=== PATIENT | female | born 1935 | race Caucasian/White ===

== ENCOUNTER 2024-07-13 22:56 | Emergency (ER) | payer MEDICARE, OTHER, SELFPAY ==
[2024-07-13 23:00] VITALS: BP 174/76
[2024-07-14 00:56] VITALS: BP 164/74
[2024-07-14 01:03] VITALS: BMI 25.4
[2024-07-14 01:15] LABS: % Basophils 0.5 % (0-2); % Eosinophils 0.4 % (0-6); % Immature Granulocytes 0.8 % (0-0.5); % Monocytes 7.7 % (1.7-9.3); % Neutrophils 72.6 % (42.2-75.2); Absolute Basophils 0.1 10^3/uL (0-0.2); Absolute Immature Granulocytes 0.1 10^3/uL (0-0.05); Absolute Lymphocytes 1.9 10^3/uL (1.2-3.4); Absolute Monocytes 0.8 10^3/uL (0.1-0.6); Absolute Neutrophils 7.6 10^3/uL (1.4-6.5); Hematocrit 38.6 % (37.0-47.0); Hemoglobin 13.7 g/dL (12.0-16.0); Mean Corp Hgb Conc. 35.5 g/dL (33.0-37.0); Mean Corpuscular Volume 84.5 fL (81.0-99.0); Mean Platelet Volume 10.2 fL (7.4-10.4); Nucleated Red Blood Cells % 0 %; Platelet Count 189 10^3/uL (130-400); Red Blood Cell Count 4.57 10^6/uL (4.20-5.40); Red Cell Dist. Width 12.6 % (11.5-14.5); White Blood Cell Count 10.4 10^3/uL (4.8-10.8)
[2024-07-14 01:16] LABS: Urine Albumin Negative (Neg - Trace); Urine Bilirubin Negative (Negative); Urine Character Clear (Clear); Urine Color Yellow; Urine Glucose 1+ (Negative); Urine Ketone Trace (Negative); Urine Leukocyte Negative (Negative); Urine Nitrite Negative (Negative); Urine Occult Blood Negative (Negative); Urine Urobilinogen Negative (Neg - 1+)
[2024-07-14 01:28] LABS: ALT (SGPT) 26 U/L (0-35); AST (SGOT) 38 U/L (14-36); Albumin 4.7 g/dl (3.5-5.0); Alkaline Phosphatase 64 U/L (38-126); Blood Urea Nitrogen 18 mg/dl (7-17); Carbon Dioxide 27 mmol/L (22-30); Chloride 89 mmol/L (98-107); Estimated Creatinine Clearance 65 ml/min; Glucose 157 mg/dl (70-99); Potassium 3.8 mmol/L (3.5-5.1); Sodium 131 mmol/L (135-145); Total Bilirubin 1.1 mg/dl (0.2-1.3); Total Protein 7.1 g/dl (6.3-8.2); eGFR > 60.00
--- NOTE | 2024-07-14 01:39 | ED.GENMED ---
History of Present Illness
General
Chief Complaint: Abdominal Pain
Source: patient
Exam Limitations: none
Time Seen by Provider: 07/14/24 01:24
Nursing documentation reviewed up to this point in time: agreed with
History of Present Illness
History of Present Illness:
This is an 88-year-old woman who has history of postpolio paresis bilateral lower extremities, wheelchair-bound. She complains of at least 5-day history of right groin pain rating to her right low back. Was initially evaluated by PCP last
Saturday, 1 day before and was placed on a 5-day course of prednisone for presumed musculoskeletal pain. She reports no improvement in pain but does admit that low back pain, right groin pain are much worse with movement, worse with
repositioning, worse with transferring, and improves when she is lying supine or Semi-Saldivar's. Pain is worse when she is sitting up. She also notes some constipation over the past week, thus far only minimally improved with taking daily Metamucil
as well as Colace over the past 5 days. She has been passing small firm to soft stools. She denies dysuria and urgency and or hematuria, no fevers or chills, no nausea nor vomiting. No prior history of similar episodes of pain and no prior
history of constipation. She has not noticed a rash. She denies fall or injury.
Past History
Past History
ED Past Medical History: HTN, Hypercholesterolemia, NIDDM (Diet controlled), Hypothyroidism and Other (polio, paresis bilateral lower extremity/wheelchair-bound, macular degeneration); Negative Asthma
ED Past Surgical History: Cholecystectomy, Gynecological (Hysterectommy), Orthopedic (3 carpal tunnels, ) and Tonsilectomy
Social History
Tobacco: Non-smoker
Alcohol: Occasional
Personal:
Living: assisted living (Cassie's choice)
Employment: Retired
Family History
Family History: Other (Noncontributory)
Phy Exam
Physical Exam
Physical Exam:
GENERAL: 88-year-old woman appears her stated age, awake and alert, pleasant, appears in no acute distress.
EYE: anicteric
NECK: Supple, nontender, no meningismus, no significant adenopathy.
ENT: oral mucosa is moist. No rhinorrhea.
CARDIAC: Regular rate and rhythm. no murmur.
LUNGS: Clear breath sounds bilaterally, no acute respiratory distress, no wheezes/rales/rhonchi
ABDOMEN: Soft, nondistended, without focal tenderness, no r/g, no cvat. No palpable masses. Normoactive BS.
BACK: No midline bony tenderness. Mild right lower lumbar paravertebral muscular tenderness to palpation. There is no bony pelvic nor inguinal tenderness to palpation. No palpable masses.
NEUROLOGICAL: Alert and oriented x3, bilateral lower extremity paresis, chronic and unchanged.
SKIN: Warm and dry, normal color, skin intact. No rash.
MUSCULOSKELETAL: Mild nonpitting edema bilateral lower extremities. Peripheral pulses are full and equal b/l. No palpable tenderness. There is full passive right hip and right knee range of motion without difficulty nor pain.
PSYCH: Normal and appropriate interaction.
Course
Orders/Labs/Results
Orders:
Orders
07/14/24 00:53
Complete Blood Count/With Diff Urgent
Comprehensive Metabolic Panel Urgent
Urinalysis Reflex To Culture Urgent
Date Specimen was Collected: 07/14/24
Time Specimen was Collected: 00:48
07/14/24 01:38
CT Abd/pel Without Iv Or Oral Urgent
Comment:
Reason For Exam: RLQ pain rad to R back x 5 days
07/14/24 04:37
Ketorolac [Toradol] 30 mg .ROUTE .STK-MED ONE
07/14/24 05:21
Ketorolac [Toradol] 30 mg IV NOW STA
Abnormal Lab Results
07/14/24
00:53
Abs Immat Gran (auto) 0.1 H 10^3/uL
(0-0.05)
Absolute Neuts (auto) 7.6 H 10^3/uL
(1.4-6.5)
Absolute Monos (auto) 0.8 H 10^3/uL
(0.1-0.6)
Immature Gran % 0.8 H %
(0-0.5)
Lymphocytes % 18.0 L %
(20.5-51.1)
Sodium 131 L mmol/L
(135-145)
Chloride 89 L mmol/L
(98-107)
BUN 18 H mg/dl
(7-17)
Creatinine 0.3 L mg/dL
(0.6-1.0)
Glucose 157 H mg/dl
(70-99)
AST 38 H U/L
(14-36)
Urine Ketones Trace A
(Negative)
Urine Glucose 1+ A
(Negative)
07/14/24 00:53
07/14/24 00:53
Vital Signs
Initial and Last Documented VS:
Initial Vital Signs
Temp Pulse Resp BP Pulse Ox
97.1 F 68 22 174/76 100
07/13/24 23:00 07/13/24 23:00 07/13/24 23:00 07/13/24 23:00 07/13/24 23:00
Last Documented Vital Signs
Temp Pulse Resp BP Pulse Ox
97.1 F 61 16 182/78 98
07/13/24 23:00 07/14/24 03:10 07/14/24 03:10 07/14/24 03:10 07/14/24 03:10
MDM/Problems Addressed
Differential Diagnosis Includes:
Concern for musculoskeletal low back pain, groin pain. Right hip exam is benign, not consistent with primary hip pain.
Other consideration is constipation, UTI, ureteric stone. Abdominal exam is overall soft and benign, appendicitis, diverticulitis are unlikely.
Labs thus far unremarkable with normal white blood cell count, unremarkable chemistries. Urinalysis is unremarkable as well.
Will check CT abdomen pelvis.
Chronic conditions affecting care: Previous abdomnial surgery and Other (Postpolio paresis lower extremities)
*Radiology
Radiology exam reviewed: radiology read reviewed
*Pulse Oximetry
Patient hypoxic: no
*Critical Care Note
Total Time (30-74mins, 75-104mins- exclusive of procedures): Not Applicable
Update Note
Update Note:
Patient feeling markedly improved after an IV dose of Toradol. Resting comfortably.
CAT scan shows no evidence of obstructing renal stone. There is note of some constipation without bowel obstruction or diverticulitis. Minimal bladder wall thickening. Urinalysis however is unremarkable, no evidence of UTI.
I suspect right groin pain is musculoskeletal in nature.
Will trial once daily meloxicam. Recommend she continue with Tylenol and gabapentin.
Recommend she continue Metamucil as well as Senokot on a daily basis for constipation. Stay well-hydrated on a daily basis as well.
Prompt follow-up with PCP for recheck.
ED Attending Note
-
Portions of this chart may have been created with voice recognition software.� Occasional wrong word or��sound alike� substitutions may have occurred due to the inherent limitations of voice recognition software.
Discharge Plan
Departure
Patient Disposition: Home (Routine Discharge)
Date of Disposition: 07/14/24
Time of Disposition: 06:18
Patient with high blood pressure during this ER visit?: No
Condition: Good
Discharge Problem:
Right groin pain, Constipation
Instructions: Low Back Pain ED, Constipation, Adult ED
Prescriptions:
New
meloxicam 15 mg tablet
15 mg PO DAILY Qty: 30 0RF
No Action
simvastatin 20 mg Tablet
20 mg PO QMWFSU
latanoprost 0.005 % Drops
1 drp OPHTHALMIC (EYE) QPM
enalapril maleate 5 mg Tablet
5 mg PO DAILY
methylprednisolone [Methylprednisone] 4 mg Tablet
4 mg PO DAILY
Rx Instructions:
start date 04/23/23
atenolol 25 mg Tablet
25 mg PO QPM
calcium carbonate-vitamin D3 [Calcium 600 + D(3)] 600 mg-5 mcg (200 unit) Tablet
2 tab PO DAILY AT 0700
aspirin [Adult Aspirin EC Low Strength] 81 mg Tablet,Delayed Release (Dr/Ec)
81 mg PO DAILY
acetaminophen 500 mg Tablet
1,000 mg PO BID
levothyroxine 50 mcg Tablet
50 mcg PO DAILY
gabapentin 300 mg Capsule
300 mg PO BID
hydrochlorothiazide 25 mg Tablet
25 mg PO DAILY
cholecalciferol (vitamin D3) 10 mcg (400 unit) Tablet,Chewable
10 mcg PO DAILY
omega 1-krz-hnz-fish oil [Fish Oil] 1,200 (144-216) mg Capsule
2 cap PO DAILY
PreserVision AREDS-2 250-90-40-1 mg Capsule
1 tab PO BID
Referrals:
UNKNOWN - PT DOES,NOT KNOW [Family Provider] -
Activity Restrictions/Additional Instructions:
Follow-up with your family doctor this week or next week for recheck.
Interventions
Interventions:
*Risk Screen - Suicide Last Done: 07/13/24 23:02
*General Assessment Last Done: 07/14/24 00:56
*Neglect/Abuse Screening Last Done: 07/13/24 23:02
ED- Fall Risk Assessment Last Done: 07/14/24 00:56
*ED COVID-19 Vaccine History Last Done: 07/14/24 00:56
LN-Sguntt-Igmurhetdq Assessment Last Done: 07/14/24 00:56
Discharge Date and Time
Print Language: LAO
[2024-07-14 03:10] VITALS: BP 182/78
[2024-07-14] MEDS: TORADOL 30 MG IV (05:22)
--- NOTE | 2024-07-14 10:55 | EDRN ---
Reviewed discharge instructions with patient. Verbalized understanding. Report given to [facility].
[2024-07-14 10:59] VITALS: BP 170/77
== END 2024-07-14 11:00 | disposition home or self-care (01) ==
LOC: EMR 22:56
PROVIDERS: Internal Medicine; EMERGENCY PHYSICIAN Emergency Medicine
DX: R10.31 Right lower quadrant pain (principal); K59.00 Constipation, unspecified; M54.50 Low back pain, unspecified; R60.0 Localized edema; I10 Essential (primary) hypertension; E11.9 Type 2 diabetes mellitus without complications; E78.00 Pure hypercholesterolemia, unspecified; E03.9 Hypothyroidism, unspecified; M81.0 Age-related osteoporosis without current pathological fracture; I34.0 Nonrheumatic mitral (valve) insufficiency; G82.20 Paraplegia, unspecified; Z99.3 Dependence on wheelchair; H35.30 Unspecified macular degeneration; Z90.49 Acquired absence of other specified parts of digestive tract; Z86.12 Personal history of poliomyelitis; Z79.82 Long term (current) use of aspirin; Z88.8 Allergy status to other drugs, medicaments and biological substances; Z88.1 Allergy status to other antibiotic agents; Z88.5 Allergy status to narcotic agent; Z88.0 Allergy status to penicillin; Z91.013 Allergy to seafood
CPT/HCPCS: 99284; 96374; 74176; 80053; 81003; 85025

== ENCOUNTER 2024-11-07 21:25 | Emergency (ER) | payer MEDICARE, OTHER, SELFPAY ==
[2024-11-07 21:33] VITALS: BP 170/80; BMI 25.1
[2024-11-07 21:52] LABS: % Basophils 0.3 % (0-2); % Eosinophils 0.5 % (0-6); % Immature Granulocytes 0.4 % (0-0.5); % Monocytes 6.5 % (1.7-9.3); % Neutrophils 84.3 % (42.2-75.2); Absolute Eosinophils 0.1 10^3/uL (0-0.7); Absolute Immature Granulocytes 0.1 10^3/uL (0-0.05); Absolute Lymphocytes 1.2 10^3/uL (1.2-3.4); Absolute Neutrophils 12.9 10^3/uL (1.4-6.5); Hematocrit 37.2 % (37.0-47.0); Hemoglobin 13.3 g/dL (12.0-16.0); Mean Corp Hgb Conc. 35.8 g/dL (33.0-37.0); Mean Corpuscular Hgb 30.4 pg (27.0-31.0); Mean Corpuscular Volume 84.9 fL (81.0-99.0); Mean Platelet Volume 10.6 fL (7.4-10.4); Nucleated Red Blood Cells % 0 %; Platelet Count 182 10^3/uL (130-400); Red Blood Cell Count 4.38 10^6/uL (4.20-5.40); Red Cell Dist. Width 12.3 % (11.5-14.5); White Blood Cell Count 15.3 10^3/uL (4.8-10.8)
[2024-11-07 22:14] LABS: ALT (SGPT) 23 U/L (0-35); AST (SGOT) 42 U/L (14-36); Albumin 4.7 g/dl (3.5-5.0); Alkaline Phosphatase 66 U/L (38-126); Blood Urea Nitrogen 28 mg/dl (7-17); Calcium 9.5 mg/dl (8.4-10.2); Carbon Dioxide 28 mmol/L (22-30); Chloride 98 mmol/L (98-107); Estimated Creatinine Clearance 64 ml/min; Glucose 221 mg/dl (70-99); Potassium 3.4 mmol/L (3.5-5.1); Sodium 135 mmol/L (135-145); Total Protein 6.9 g/dl (6.3-8.2); eGFR > 60.00
[2024-11-07 23:10] LABS: Urine Albumin 3+ (Neg - Trace); Urine Bilirubin Negative (Negative); Urine Character Cloudy (Clear); Urine Color Brown; Urine Glucose 2+ (Negative); Urine Ketone 1+ (Negative); Urine Leukocyte 3+ (Negative); Urine Nitrite Positive (Negative); Urine Occult Blood 4+ (Negative); Urine Specific Gravity 1.015 (<1.030); Urine Urobilinogen Negative (Neg - 1+)
[2024-11-07 23:17] LABS: Urine Bacteria Few (Negative); Urine Squamous Cell 0-2 /LPF (Few); Urine White Cell 50-60 /HPF (0-5)
[2024-11-07 23:18] LABS: Urine Red Blood Cell 70-80 /HPF (0-2)
--- NOTE | 2024-11-08 00:18 | ED.GENMED ---
Addendum entered and electronically signed by Derrick Haskins PA-C 11/10/24 06:47:
Given Cipro for UTI. Culture shows E. coli. Sensitivities pending
Original Note:
History of Present Illness
General
Chief Complaint: Urinary Symptoms
Source: patient
Exam Limitations: none
Time Seen by Provider: 11/08/24 00:15
Nursing documentation reviewed up to this point in time: agreed with
History of Present Illness
History of Present Illness:
The patient is a pleasant 89-year-old female who reports burning when she urinates, increased frequency of urination and small clots in the urine. Patient reports that it started yesterday. She reports she was evaluated by the doctor at [facility], [place]
[facility] and started on Cipro. Patient reports she took 1 dose of Cipro so far. She denies fever, chills, nausea, vomiting and diarrhea. Patient reports that due to the small blood clots in the urine, her doctor wanted her to be evaluated in the
emergency department. She denies back pain.
Past History
Past History
ED Past Medical History: HTN, Hypercholesterolemia, NIDDM (Diet controlled), Hypothyroidism and Other (polio, paresis bilateral lower extremity/wheelchair-bound, macular degeneration)
ED Past Surgical History: Cholecystectomy, Gynecological (Hysterectommy), Orthopedic (3 carpal tunnels, ) and Tonsilectomy
Social History
Tobacco: Non-smoker
Alcohol: Occasional
Personal:
Living: assisted living ([facility])
Employment: Retired
Family History
Family History: Other (Noncontributory)
Review of Systems
Review of Systems
Allergies reviewed?: Yes
All Other Systems: ROS reviewed and negative except as documented in HPI and ROS
Constitutional: Reports no symptoms
EENT: Reports no symptoms
Respiratory: Reports no symptoms
Cardiac: Reports no symptoms
ABD/GI: Reports no symptoms
: Reports dysuria, frequency and bleeding
Musculoskeletal: Reports no symptoms
Skin: Reports no symptoms
Neurological: Reports no symptoms
Endocrine: Reports no symptoms
Hematologic/Lymphatic: Reports no symptoms
Psychiatric: Reports no symptoms
Phy Exam
Physical Exam
Physical Exam:
Physical Exam
General: no apparent distress, not acutely ill. Well appearing. Nontoxic and comfortable
Neck: supple. no meningeal signs. normal psoterior pharynx
Heart: s1/s2 regular rate and rhythm
Lungs: no acute respiratory distress. clear bilaterally
Abdomen: normal bowel sounds. not tender. no CVAT
Neuro: alert and oriented. no focal neurological deficits
Skin: no rash
Psychiatric: well kept. interactive and cooperative
Extremities: no edema. no calf tenderness. negative homans. good distal pulses
Course
Orders/Labs/Results
Orders:
Orders
11/07/24 21:43
Complete Blood Count/With Diff Urgent
Comprehensive Metabolic Panel Urgent
Urinalysis Reflex To Culture Urgent
Date Specimen was Collected: 11/07/24
Time Specimen was Collected: 21:38
Urine Microscopic Reflex Cult Urgent
Urine Culture Urgent
ZOHRA Source: U
Specimen Description:
Date Specimen was Collected: 11/07/24
Time Specimen was Collected: 21:38
11/08/24 00:42
CT Abd/pel Without Iv Or Oral Urgent
Comment:
Reason For Exam: hematuria
11/08/24 00:55
Phenazopyridine HCl [Pyridium] 100 mg PO NOW STA
11/08/24 01:09
Ciprofloxacin HCl [Cipro] 250 mg PO NOW STA
Abnormal Lab Results
11/07/24
21:43
WBC 15.3 H 10^3/uL
(4.8-10.8)
MPV 10.6 H fL
(7.4-10.4)
Abs Immat Gran (auto) 0.1 H 10^3/uL
(0-0.05)
Absolute Neuts (auto) 12.9 H 10^3/uL
(1.4-6.5)
Absolute Monos (auto) 1.0 H 10^3/uL
(0.1-0.6)
Neutrophils % 84.3 H %
(42.2-75.2)
Lymphocytes % 8.0 L %
(20.5-51.1)
Potassium 3.4 L mmol/L
(3.5-5.1)
BUN 28 H mg/dl
(7-17)
Creatinine 0.4 L mg/dL
(0.6-1.0)
Glucose 221 H mg/dl
(70-99)
AST 42 H U/L
(14-36)
Urine Ketones 1+ A
(Negative)
Ur Occult Blood Reflex 4+ A
(Negative)
Urine Nitrite (Reflex) Positive A
(Negative)
Leukocyte Esterase Rfl 3+ A
(Negative)
Urine RBC 70-80 A /HPF
(0-2)
Urine WBC (Reflex) 50-60 A /HPF
(0-5)
Urine Bacteria (Reflex) Few A
(Negative)
Urine Glucose 2+ A
(Negative)
Urine Albumin (Reflex) 3+ A
(Neg - Trace)
11/07/24 21:43
11/07/24 21:43
Vital Signs
Initial and Last Documented VS:
Initial Vital Signs
Temp Pulse Resp BP Pulse Ox
98.5 F 88 18 170/80 100
11/07/24 21:33 11/07/24 21:33 11/07/24 21:33 11/07/24 21:33 11/07/24 21:33
Last Documented Vital Signs
Temp Pulse Resp BP Pulse Ox
98.5 F 88 18 170/80 100
11/07/24 21:33 11/07/24 21:33 11/07/24 21:33 11/07/24 21:33 11/07/24 21:33
MDM/Problems Addressed
Differential Diagnosis Includes:
Cystitis/UTI, kidney stones, renal mass
MDM/Problems Addressed:
Patient presents with acute mild hematuria, dysuria and frequency of urination
Chronic conditions affecting care: HTN
Acute Exacerbation and/or Progression of Chronic Illness:
Patient is acutely hypertensive, however, there is no sign of CHF or stroke
Acute Exacerbation and/or Progression of Chronic Illness: HTN
*Pulse Oximetry
Patient hypoxic: no
*EKG
Interpreted by ED Provider?: NA
*Curriculum Assistant Principal Interpretation
Rate: Curriculum Assistant Principal- N/A
*Critical Care Note
Total Time (30-74mins, 75-104mins- exclusive of procedures): Not Applicable
Data Reviewed
Review of Other/Old Records Reveals: Radiology Studies (CT abdomen pelvis reviewed from 2023 which shows multiple small kidney stones in the right kidney)
ED Attending Note
-
Portions of this chart may have been created with voice recognition software.� Occasional wrong word or��sound alike� substitutions may have occurred due to the inherent limitations of voice recognition software.
Discharge Plan
Departure
Prescriptions:
No Action
simvastatin 20 mg Tablet
20 mg PO QMWFSU
latanoprost 0.005 % Drops
1 drp OPHTHALMIC (EYE) QPM
enalapril maleate 5 mg Tablet
5 mg PO DAILY
methylprednisolone [Methylprednisone] 4 mg Tablet
4 mg PO DAILY
Rx Instructions:
start date 04/23/23
atenolol 25 mg Tablet
25 mg PO QPM
calcium carbonate-vitamin D3 [Calcium 600 + D(3)] 600 mg-5 mcg (200 unit) Tablet
2 tab PO DAILY AT 0700
aspirin [Adult Aspirin EC Low Strength] 81 mg Tablet,Delayed Release (Dr/Ec)
81 mg PO DAILY
acetaminophen 500 mg Tablet
1,000 mg PO BID
levothyroxine 50 mcg Tablet
50 mcg PO DAILY
gabapentin 300 mg Capsule
300 mg PO BID
hydrochlorothiazide 25 mg Tablet
25 mg PO DAILY
cholecalciferol (vitamin D3) 10 mcg (400 unit) Tablet,Chewable
10 mcg PO DAILY
omega 0-nzy-vmx-fish oil [Fish Oil] 1,200 (144-216) mg Capsule
2 cap PO DAILY
PreserVision AREDS-2 250-90-40-1 mg Capsule
1 tab PO BID
meloxicam 15 mg tablet
15 mg PO DAILY Qty: 30 0RF
Referrals:
Denise Sales DO [Family Provider] -
Interventions
Interventions:
*Risk Screen - Suicide Last Done: 11/07/24 21:33
*General Assessment Last Done: 11/07/24 21:33
*Neglect/Abuse Screening Last Done: 11/07/24 21:33
*ED COVID-19 Vaccine History Last Done: 11/07/24 21:33
ED-Female Genitourinary Assessment Last Done: 11/07/24 23:46
Discharge Date and Time
Print Language: KIS[place]HILI
[2024-11-08] MEDS: Pyridium 100 MG PO (01:07)
[2024-11-08] MEDS: CIPRO 250 MG PO (01:19)
[2024-11-08 02:20] VITALS: BP 162/61
--- NOTE | 2024-11-08 02:47 | ED.GENMED ---
History of Present Illness
General
Chief Complaint: Urinary Symptoms
Source: patient
Time Seen by Provider: 11/08/24 00:15
History of Present Illness
History of Present Illness:
Please see my note from same visit.
Past History
Past History
ED Past Medical History: HTN, Hypercholesterolemia, NIDDM (Diet controlled), Hypothyroidism and Other (polio, paresis bilateral lower extremity/wheelchair-bound, macular degeneration)
ED Past Surgical History: Cholecystectomy, Gynecological (Hysterectommy), Orthopedic (3 carpal tunnels, ) and Tonsilectomy
Social History
Tobacco: Non-smoker
Alcohol: Occasional
Personal:
Living: assisted living (Cassie's choice)
Employment: Retired
Family History
Family History: Other (Noncontributory)
Review of Systems
Review of Systems
Allergies reviewed?: Yes
All Other Systems: Not applicable
Phy Exam
Physical Exam
Physical Exam:
Please see my note from same visit
Course
Orders/Labs/Results
Orders:
Orders
11/07/24 21:43
Complete Blood Count/With Diff Urgent
Comprehensive Metabolic Panel Urgent
Urinalysis Reflex To Culture Urgent
Date Specimen was Collected: 11/07/24
Time Specimen was Collected: 21:38
Urine Microscopic Reflex Cult Urgent
Urine Culture Urgent
ZOHRA Source: U
Specimen Description:
Date Specimen was Collected: 11/07/24
Time Specimen was Collected: 21:38
11/08/24 00:42
CT Abd/pel Without Iv Or Oral Urgent
Comment:
Reason For Exam: hematuria
11/08/24 00:55
Phenazopyridine HCl [Pyridium] 100 mg PO NOW STA
11/08/24 01:09
Ciprofloxacin HCl [Cipro] 250 mg PO NOW STA
Abnormal Lab Results
11/07/24
21:43
WBC 15.3 H 10^3/uL
(4.8-10.8)
MPV 10.6 H fL
(7.4-10.4)
Abs Immat Gran (auto) 0.1 H 10^3/uL
(0-0.05)
Absolute Neuts (auto) 12.9 H 10^3/uL
(1.4-6.5)
Absolute Monos (auto) 1.0 H 10^3/uL
(0.1-0.6)
Neutrophils % 84.3 H %
(42.2-75.2)
Lymphocytes % 8.0 L %
(20.5-51.1)
Potassium 3.4 L mmol/L
(3.5-5.1)
BUN 28 H mg/dl
(7-17)
Creatinine 0.4 L mg/dL
(0.6-1.0)
Glucose 221 H mg/dl
(70-99)
AST 42 H U/L
(14-36)
Urine Ketones 1+ A
(Negative)
Ur Occult Blood Reflex 4+ A
(Negative)
Urine Nitrite (Reflex) Positive A
(Negative)
Leukocyte Esterase Rfl 3+ A
(Negative)
Urine RBC 70-80 A /HPF
(0-2)
Urine WBC (Reflex) 50-60 A /HPF
(0-5)
Urine Bacteria (Reflex) Few A
(Negative)
Urine Glucose 2+ A
(Negative)
Urine Albumin (Reflex) 3+ A
(Neg - Trace)
11/07/24 21:43
11/07/24 21:43
Vital Signs
Initial and Last Documented VS:
Initial Vital Signs
Temp Pulse Resp BP Pulse Ox
98.5 F 88 18 170/80 100
11/07/24 21:33 11/07/24 21:33 11/07/24 21:33 11/07/24 21:33 11/07/24 21:33
Last Documented Vital Signs
Temp Pulse Resp BP Pulse Ox
98.5 F 88 18 170/80 100
11/07/24 21:33 11/07/24 21:33 11/07/24 21:33 11/07/24 21:33 11/07/24 21:33
*Radiology
Radiology exam reviewed: radiology read reviewed
*Pulse Oximetry
Patient hypoxic: no
*EKG
Interpreted by ED Provider?: NA
*Retail Pharmacist Interpretation
Rate: Retail Pharmacist- N/A
*Critical Care Note
Total Time (30-74mins, 75-104mins- exclusive of procedures): Not Applicable
Data Reviewed
Source: patient
Update Note
Update Note:
Patient remains very well and comfortable appearing. She is smiling and conversational. CT shows no evidence of obstructing stone or hydronephrosis. Patient has been hemodynamically stable without any fever or back pain. Patient happy to go home.
ED Attending Note
-
Portions of this chart may have been created with voice recognition software.� Occasional wrong word or��sound alike� substitutions may have occurred due to the inherent limitations of voice recognition software.
Discharge Plan
Departure
Patient Disposition: Home (Routine Discharge)
Date of Disposition: 11/08/24
Time of Disposition: 02:49
Patient with high blood pressure during this ER visit?: Yes
Covid-19: Not Applicable
Discharge Problem:
Acute UTI, Hematuria
Instructions: Urinary Tract Infection, Adult (DC), Blood in the Urine (Hematuria), Adult (DC)
Prescriptions:
New
phenazopyridine [Pyridium] 100 mg tablet
100 mg PO TID PRN (Reason: Pain) Qty: 10 0RF
No Action
simvastatin 20 mg Tablet
20 mg PO QMWFSU
latanoprost 0.005 % Drops
1 drp OPHTHALMIC (EYE) QPM
enalapril maleate 5 mg Tablet
5 mg PO DAILY
methylprednisolone [Methylprednisone] 4 mg Tablet
4 mg PO DAILY
Rx Instructions:
start date 04/23/23
atenolol 25 mg Tablet
25 mg PO QPM
calcium carbonate-vitamin D3 [Calcium 600 + D(3)] 600 mg-5 mcg (200 unit) Tablet
2 tab PO DAILY AT 0700
aspirin [Adult Aspirin EC Low Strength] 81 mg Tablet,Delayed Release (Dr/Ec)
81 mg PO DAILY
acetaminophen 500 mg Tablet
1,000 mg PO BID
levothyroxine 50 mcg Tablet
50 mcg PO DAILY
gabapentin 300 mg Capsule
300 mg PO BID
hydrochlorothiazide 25 mg Tablet
25 mg PO DAILY
cholecalciferol (vitamin D3) 10 mcg (400 unit) Tablet,Chewable
10 mcg PO DAILY
omega 2-ljk-krh-fish oil [Fish Oil] 1,200 (144-216) mg Capsule
2 cap PO DAILY
PreserVision AREDS-2 250-90-40-1 mg Capsule
1 tab PO BID
meloxicam 15 mg tablet
15 mg PO DAILY Qty: 30 0RF
Referrals:
Denise Sales DO [Family Provider] -
Activity Restrictions/Additional Instructions:
It is very important that you take your next dose of the antibiotic at around noon today with lunch.
Please continue to take the antibiotic as prescribed by your doctor.
Please return with any fever or vomiting.
Interventions
Interventions:
*Risk Screen - Suicide Last Done: 11/07/24 21:33
*General Assessment Last Done: 11/07/24 21:33
*Neglect/Abuse Screening Last Done: 11/07/24 21:33
*ED- Fall Risk Assessment Last Done: 11/08/24 02:29
*ED COVID-19 Vaccine History Last Done: 11/07/24 21:33
ED-Female Genitourinary Assessment Last Done: 11/07/24 23:46
Discharge Date and Time
Print Language: [id number]
[2024-11-08 04:00] VITALS: BP 164/93
[2024-11-08 05:48] VITALS: BP 164/91
== END 2024-11-08 05:30 | disposition home or self-care (01) ==
LOC: EMR 21:25
PROVIDERS: Emergency Medicine; EMERGENCY PHYSICIAN Emergency Medicine; FAMILY PHYSICIAN Internal Medicine
DX: N39.0 Urinary tract infection, site not specified (principal); R31.9 Hematuria, unspecified; E03.9 Hypothyroidism, unspecified; E11.9 Type 2 diabetes mellitus without complications; E78.00 Pure hypercholesterolemia, unspecified; I10 Essential (primary) hypertension; Z90.49 Acquired absence of other specified parts of digestive tract; Z99.3 Dependence on wheelchair
CPT/HCPCS: 99284; 74176; 80053; 81003; 81015; 85025; 87077; 87086

== ENCOUNTER 2024-11-13 18:33 | Inpatient (IN) | payer MEDICARE, OTHER, SELFPAY ==
[2024-11-13] VITALS (9 sets, daily range): BP systolic 100–132; BP diastolic 49–89; BMI 27.8; BMI 25.1
[2024-11-13 14:45] LABS: % Basophils 0.4 % (0-2); % Eosinophils 0.5 % (0-6); % Lymphocytes 9.5 % (20.5-51.1); % Monocytes 12.3 % (1.7-9.3); % Neutrophils 76.3 % (42.2-75.2); Absolute Eosinophils 0.1 10^3/uL (0-0.7); Absolute Immature Granulocytes 0.1 10^3/uL (0-0.05); Absolute Lymphocytes 1.1 10^3/uL (1.2-3.4); Absolute Monocytes 1.4 10^3/uL (0.1-0.6); Absolute Neutrophils 8.5 10^3/uL (1.4-6.5); Hematocrit 34.2 % (37.0-47.0); Hemoglobin 12.1 g/dL (12.0-16.0); Mean Corp Hgb Conc. 35.4 g/dL (33.0-37.0); Mean Corpuscular Hgb 30.1 pg (27.0-31.0); Mean Corpuscular Volume 85.1 fL (81.0-99.0); Mean Platelet Volume 10.6 fL (7.4-10.4); Nucleated Red Blood Cells % 0 %; Platelet Count 158 10^3/uL (130-400); Red Blood Cell Count 4.02 10^6/uL (4.20-5.40); Red Cell Dist. Width 12.3 % (11.5-14.5); White Blood Cell Count 11.1 10^3/uL (4.8-10.8)
[2024-11-13 14:55] LABS: PT 14.6 Sec (11.4-14.6)
[2024-11-13 15:02] LABS: ALT (SGPT) 56 U/L (0-35); AST (SGOT) 60 U/L (14-36); Albumin 3.4 g/dl (3.5-5.0); Alkaline Phosphatase 95 U/L (38-126); Blood Urea Nitrogen 50 mg/dl (7-17); Calcium 8.4 mg/dl (8.4-10.2); Carbon Dioxide 25 mmol/L (22-30); Chloride 91 mmol/L (98-107); Glucose 155 mg/dl (70-99); Potassium 3.2 mmol/L (3.5-5.1); Sodium 128 mmol/L (135-145); Total Bilirubin 0.9 mg/dl (0.2-1.3); Total Protein 5.9 g/dl (6.3-8.2); eGFR > 60.00
--- NOTE | 2024-11-13 16:17 | ED.GENMED ---
History of Present Illness
General
Chief Complaint: Heart Rate Problem
Source: patient and family (Daughter)
Exam Limitations: none
Time Seen by Provider: 11/13/24 15:51
Nursing documentation reviewed up to this point in time: agreed with
History of Present Illness
History of Present Illness:
89-year-old female presents emergency department due to new onset atrial fibrillation. She is currently being treated for a UTI, that is ESBL positive. She was started on Cipro, and then changed to Bactrim. Her physician saw her today, and sent
her to the emergency department after getting an EKG that showed atrial fibrillation.
Past History
Past History
ED Past Medical History: HTN, Hypercholesterolemia, NIDDM (Diet controlled), Hypothyroidism and Other (polio, paresis bilateral lower extremity/wheelchair-bound, macular degeneration)
ED Past Surgical History: Cholecystectomy, Gynecological (Hysterectommy), Orthopedic (3 carpal tunnels, ) and Tonsilectomy
Social History
Tobacco: Non-smoker
Alcohol: Occasional
Personal:
Living: assisted living ([facility])
Employment: Retired
Family History
Family History: Other (Noncontributory)
Review of Systems
Review of Systems
Allergies reviewed?: Yes
All Other Systems: Not applicable
Constitutional: Reports no symptoms
EENT: Reports no symptoms
Respiratory: Reports no symptoms
Cardiac: Reports no symptoms
ABD/GI: Reports no symptoms
: Reports frequency and urgency
Musculoskeletal: Reports no symptoms
Skin: Reports no symptoms
Neurological: Reports weakness
Endocrine: Reports no symptoms
Hematologic/Lymphatic: Reports no symptoms
Psychiatric: Reports no symptoms
Phy Exam
Physical Exam
Physical Exam:
Physical Exam
General: no apparent distress, not acutely ill
Neck: supple. no meningeal signs. normal posterior pharynx
Heart: s1/s2 tachycardia, irregular rhythm, no murmur. equal radial
pulses.
HEENT: Pupils equal round reactive to light, EOMI
Lungs: no acute respiratory distress. clear bilaterally
Abdomen: normal bowel sounds. not tender. no CVAT
Neuro: alert and oriented. no focal neurological deficits cranial nerves II through XII intact, except unable to ambulate due to polio
Skin: no rash
Psychiatric: well kept. interactive and cooperative
Extremities: no edema. no calf tenderness. negative homans. good distal pulses
Course
Orders/Labs/Results
Orders:
Orders
11/13/24 14:21
ECG [Electrocardiogram (*1)] Urgent
Reason for Study: Atrial Fibrillation
11/13/24 14:22
EKG- Treatment ONCE
11/13/24 14:38
Complete Blood Count/With Diff Urgent
Comprehensive Metabolic Panel Urgent
Magnesium Urgent
Comment: ADD ON
PT/INR [Prothrombin Time] Urgent
Troponin I Urgent
11/13/24 16:12
Meropenem [Merrem] 1,000 mg IV NOW STA
11/13/24 16:14
Diltiazem 125 mg/125 ml Nss [Cardizem] 125 mg in 125 ml IV NOW
Initial dose in mg/hr, then titrate:: 5
Titrate to keep:: Heart rate 80-100 bpm
Titrate by mg/hr:: 5 mg/hr
Frequency of titrations (minutes):: 15
Maximum dose in mg/hr:: 15
Diltiazem HCl [Cardizem] 5 mg IV NOW STA
11/13/24 16:15
Heparin 4,000 units IV NOW STA
Heparin 15503 Units/250 ml 25,000 units in 250 ml IV PER PROTOCOL
Weight to be used for heparin protocol in kilograms (kg):: 78.1
Protocol:: Cardiac Tx/Acute Coronary
PTT Goal Range to be used:: PTT 73 to 111 seconds
Order type:: Initial
INITIAL Infusion Dose (UNITS/KG/hr) & then follow protocol:: 12 units/kg/hr
Infusion Dose in UNITS/hr & then follow protocol (UNITS/hr):: 950
INFUSION RATE in mL/hr & then follow protocol (mL/hr):: 9.5
PTT less than or equal to 64 seconds:: Increase rate by 200 units/hr (+ 2 mL/hr)
PTT 64.1 to 72.9 seconds:: Increase rate by 100 units/hr (+ 1 mL/hr)
PTT 73 to 111 seconds:: Target Range. No change in rate.
PTT 111.1 to 130.9 seconds:: Decrease rate by 100 units/hr (- 1 mL/hr)
PTT 131 to 199.9 seconds:: HOLD for 1 hr. Then decrease rate by 200 units/hr (- 2 mL/hr)
PTT greater than or equal to 200 seconds:: HOLD for 2 hrs & Notify Provider. Then decrease by 200 units/hr (-
2 mL/hr)
Lab follow-up:: Each change, PTT q6h until 2 consecutive are therapeutic. Then PTT
daily.
Nursing to Place Non Medication Order As Directed
Physician Order: PTT 6 hours after initial start of Heparin infusion
Above order entered?: Yes
11/13/24 16:32
Potassium Chloride 10% Elixir [KCl Elixir] 40 meq PO NOW STA
CR Chest Portable - 1 View Urgent
Comment:
Reason For Exam: rapid atrial fibrillation
Reason Study Needs to be Portable: Patient Unstable
11/13/24 16:33
Add On- LAB Urgent
Tests Added?: magnesium
11/13/24 16:39
PTT Urgent
Comment: Obtain baseline before beginning heparin infusion if not already collected
11/13/24 16:43
Sterile Water [Sterile Water For Injection] 20 ml .ROUTE .STK-MED
11/13/24 16:50
Potassium Chloride [KCl] 40 meq 0.9% Sodium Chloride 250 ml [Nss] 250 ml IV NOW
11/13/24 17:55
Admit/Transfer Patient As Directed
Co-Sign Provider:
Level of Care: Inpatient admission
Assign to:: IMU- Intermediate Care
Physician / Group: Amee/Hospitalist
Diagnosis: ESBL UTI, A.fib w RVR, elevated trop
Reason for Hospitalization: ESBL UTI, A.fib w RVR, elevated trop
Expected length of stay greater than two midnights?: Yes
ELOS- Estimated Length of Stay in days: 3
I certify the patient meets the requirements for IP care: Yes
PRN Pain Medication Management As Directed
May give lesser potent ordered pain med per pt: Yes
preference::
Protocol:: Medication orders for pain may be administered in a
manner that supports deferring to patient preference
when the pt is:
- Requesting an ordered lesser potent pain medication.
Least to most potent pain medications are defined
as: acetaminophen < NSAID < tramadol < opioids
(morphine, oxycodone, hydromorphone).
- Requesting a lesser dose of the same medication IF
ORDERED.
- Requesting a less intrusive route of administration
if both routes are prescribed by the provider (PO <
IV).
11/13/24 17:58
Code Status As Directed
Resuscitation Status: Full Code
11/13/24 22:42
PTT Urgent
Abnormal Lab Results
11/13/24
14:38
WBC 11.1 H 10^3/uL
(4.8-10.8)
RBC 4.02 L 10^6/uL
(4.20-5.40)
Hct 34.2 L %
(37.0-47.0)
MPV 10.6 H fL
(7.4-10.4)
Abs Immat Gran (auto) 0.1 H 10^3/uL
(0-0.05)
Absolute Neuts (auto) 8.5 H 10^3/uL
(1.4-6.5)
Absolute Lymphs (auto) 1.1 L 10^3/uL
(1.2-3.4)
Absolute Monos (auto) 1.4 H 10^3/uL
(0.1-0.6)
Immature Gran % 1.0 H %
(0-0.5)
Neutrophils % 76.3 H %
(42.2-75.2)
Lymphocytes % 9.5 L %
(20.5-51.1)
Monocytes % 12.3 H %
(1.7-9.3)
Sodium 128 L mmol/L
(135-145)
Potassium 3.2 L mmol/L
(3.5-5.1)
Chloride 91 L mmol/L
(98-107)
BUN 50 H mg/dl
(7-17)
Glucose 155 H mg/dl
(70-99)
AST 60 H U/L
(14-36)
ALT 56 H U/L
(0-35)
Troponin I 0.370 H* ng/ml
Total Protein 5.9 L g/dl
(6.3-8.2)
Albumin 3.4 L g/dl
(3.5-5.0)
11/13/24 14:38
11/13/24 14:38
Vital Signs
Initial and Last Documented VS:
Initial Vital Signs
Temp Pulse Resp BP Pulse Ox
98.2 F 110 16 110/75 98
11/13/24 14:31 11/13/24 14:31 11/13/24 14:31 11/13/24 14:31 11/13/24 14:31
Last Documented Vital Signs
Temp Pulse Resp BP Pulse Ox
98.2 F 110 18 107/56 97
11/13/24 14:31 11/13/24 19:15 11/13/24 19:15 11/13/24 19:00 11/13/24 19:00
MDM/Problems Addressed
Differential Diagnosis Includes:
Rapid atrial fibrillation, UTI
MDM/Problems Addressed:
89-year-old female with new onset rapid atrial fibrillation and multidrug-resistant UTI. Will start meropenem, heparin, diltiazem drip. Admit to hospitalist.
Chronic conditions affecting care: HTN
Acute Exacerbation and/or Progression of Chronic Illness: HTN
*Pulse Oximetry
Patient hypoxic: no
*EKG
Interpreted by ED Provider?: Yes
EKG Intrepretation Date: 11/13/24
EKG Intrepretation Time: 14:26
Interpretation: abnormal
Comparison EKG: changes noted
Heart Rate: 112
Rate: tachycardiac
Rhythm: a-fib
[place]: left axis deviation
Interval: normal interval
QRS Pattern: normal QRS
Ischemia: no ischemia
*Foster Parent Interpretation
Rate: normal and tachycardiac
Interpretation: abnormal
Heart Rate: 122
Rhythm: a-fib
*Critical Care Note
Total Time (30-74mins, 75-104mins- exclusive of procedures): 35
comment:
Critical care statement: A total of 35 minutes of critical care time was provided for this patient. This includes management of unstable vital signs, evaluation of the patient at bedside, reviewing the patient's pertinent medical records, discussion
with consultants, review of old EKGs and review of pertinent medical records. This time with separate from time utilized to perform the aforementioned documented procedures
Data Reviewed
Review of Other/Old Records Reveals: Labs (Urine cultures show ESBL multidrug-resistant UTI)
Source: records
Patient Management
Social determinants of health affecting care: Living situation and Strong social support
Discussion with other providers: Hospitalist
Escalation/DeEscalation of care consider admission/obs:
Admit indicated
ED Attending Note
-
Portions of this chart may have been created with voice recognition software.� Occasional wrong word or��sound alike� substitutions may have occurred due to the inherent limitations of voice recognition software.
Discharge Plan
Departure
Patient Disposition: Admit
Date of Disposition: 11/13/24
Time of Disposition: 16:24
Admit to: IMU
Presentation/result/management discussed w/ accepting MD/DO: Hospitalist
Patient with high blood pressure during this ER visit?: No
Condition: Fair
Discharge Problem:
Atrial fibrillation with rapid ventricular response, UTI (urinary tract infection), Acute hypokalemia
Interventions
Interventions:
*Risk Screen - Suicide Last Done: 11/13/24 14:31
*Neglect/Abuse Screening Last Done: 11/13/24 14:31
ED- Cardiac Assessment Last Done: 11/13/24 15:59
ED- Pulmonary Assessment Last Done: 11/13/24 15:59
[2024-11-13] MEDS: CARDIZEM 5 MG IV (16:38)
[2024-11-13] MEDS: CARDIZEM 125 IV (16:38)
[2024-11-13] MEDS: HEPARIN 4000 UNITS IV (16:41)
[2024-11-13] MEDS: HEPARIN 25000 UNITS/250 ML IV (16:42)
[2024-11-13] MEDS: KCL ELIXIR 40 MEQ PO (16:46)
[2024-11-13] MEDS: MERREM 1000 MG IV (16:48)
[2024-11-13 17:04] LABS: Magnesium 1.8 mg/dl (1.6-2.3)
[2024-11-13 17:05] LABS: APTT 25.8 Sec (23.4-35.0)
[2024-11-13] MEDS: KCL 270 MEQ IV (18:01)
--- NOTE | 2024-11-13 18:09 | HPS.HSE ---
Family Physician
-
Family Physician: Denise Sales
Chief Complaint
-
Atrial fibrillation with RVR
History of Present Illness
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
her ADLs with weekly help, macular degeneration, who presents the emergency department secondary to severe generalized weakness and fatigue. She was being treated outpatient for UTI with Cipro that was changed to Bactrim due to ESBL positive
sensitive to Bactrim. Since then she has been experiencing increased fatigue. She denies chest pain or shortness of breath no palpitations, she denies current urinary symptoms. In the emergency department she is found to be in atrial fibrillation
with RVR and she was started on a heparin drip and a diltiazem drip. Her troponin was also noted to be elevated.
ED treatment IV Merrem, IV diltiazem drip , IV heparin drip, potassium IV and p.o.
Medical History
Past Medical History
Past Medical History: Reports HTN, Hypercholesterolemia, Hypothyroidism, NIDDM (diet controlled) and Other (polio, paresis bilateral lower extremity/wheelchair-bound, macular degeneration)
Past Surgical History: Reports Cholecystectomy, Gynocological ([place]), Orthopedic (Carpel Tunnel) and Tonsilectomy
Social History
Tobacco: Non-smoker
Alcohol: Occasional
Personal:
Living: Assisted Living ([facility] )
Family History
Family History: Not pertinent
Allergies / Home Medications
Allergies reflects when Allergies were last updated in [employer].
Home Medications with original date entered in [employer]
Allergy/Medication List:
Allergies
Allergy/AdvReac Type Severity Reaction Status Date / Time
amoxicillin [From Augmentin] Allergy Rash Verified 11/13/24 14:32
clavulanic acid Allergy Rash Verified 11/13/24 14:32
[From Augmentin]
meperidine [From Demerol] Allergy Unknown Verified 11/13/24 14:32
niacin Allergy Unknown Verified 11/13/24 14:32
Penicillins Allergy Unknown Verified 11/13/24 14:32
shellfish derived Allergy Unknown Verified 11/13/24 14:32
Home Medications
acetaminophen 500 mg tablet 1,000 mg PO BID 05/04/23
aspirin 81 mg tablet,delayed release 81 mg PO DAILY 05/04/23
atenolol 25 mg tablet 25 mg PO HS 05/04/23
gabapentin 300 mg capsule 300 mg PO BID 05/04/23
levothyroxine 50 mcg tablet 50 mcg PO DAILY 05/04/23
omega 9-rsl-ucu-fish oil 1,200 mg (144 mg-216 mg) capsule (Fish Oil) 1 cap PO BID 05/04/23
simvastatin 20 mg tablet 20 mg PO SUMOWEFR 05/04/23
vit C 250 mg-vit E 90 mg-zinc 40 mg-copper 1 du-iqybfi-bwszel capsule (PreserVision AREDS-2) 1 tab PO BID 05/04/23
ascorbic acid (vitamin C) 500 mg tablet (Vitamin C) 500 mg PO Q48H 11/13/24
estradiol 0.01% (0.1 mg/gram) vaginal cream 1 appful vaginal MOWE 11/13/24
sulfamethoxazole 800 mg-trimethoprim 160 mg tablet (Bactrim DS) 1 tab PO BID 11/13/24
okay
Review of Systems
-
A 12 point ROS was completed and negative except as noted: Yes
Physical Exam
Vital Signs
Vital Signs
Temp Pulse Resp BP Pulse Ox
98.2 F 125 19 115/82 98
11/13/24 14:31 11/13/24 16:38 11/13/24 15:56 11/13/24 16:38 11/13/24 15:56
Physical Exam
General: Well Developed, Well Nourished and Conversant
HEENT: NormoCephalic, Anicteric and Moist mucous membranes
Respiratory: Clear
Cardiac: Irregular Rhythm and Tachycardia
GI: Soft, Non Tender and Non Distended
Musculoskeletal: No Clubbing, No Cyanosis, No Edema and Other (b/l polio paresis LE)
Skin: Warm and Dry
Neuro: AO x 3 and Other (no acute focal deficits)
Psych: Calm
Laboratory Results
-
11/13/24 14:38
11/13/24 14:38
Laboratory Results
PT 14.6 Sec (11.4-14.6) 11/13/24 14:38
INR 1.10 11/13/24 14:38
APTT 25.8 Sec (23.4-35.0) 11/13/24 16:39
Total Bilirubin 0.9 mg/dl (0.2-1.3) 11/13/24 14:38
AST 60 U/L (14-36) H 11/13/24 14:38
ALT 56 U/L (0-35) H 11/13/24 14:38
Alkaline Phosphatase 95 U/L (38-126) 11/13/24 14:38
Troponin I 0.370 ng/ml H* 11/13/24 14:38
Impression/Plan
-
IMPRESSION:
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
her ADLs with weekly help, macular degeneration, who presents the emergency department secondary to severe generalized weakness and fatigue. She was being treated outpatient for UTI with Cipro that was changed to Bactrim due to ESBL positive
sensitive to Bactrim. Since then she has been experiencing increased fatigue. She denies chest pain or shortness of breath no palpitations, she denies current urinary symptoms. In the emergency department she is found to be in atrial fibrillation
with RVR and she was started on a heparin drip and a diltiazem drip. Her troponin was also noted to be elevated.
ED treatment IV Merrem, IV diltiazem drip , IV heparin drip, potassium IV and p.o.
# ESBL UTI
# atrial fibrillation with RVR
# Elevated troponin, concern for non-STEMI versus demand ischemia
# Gkm-fmwjlrc-itamvvwsy diabetes, diet controlled
# Hypothyroidism
Continue Synthroid
#Polio, wheelchair-bound due to paresis of the bilateral lower extremities
# Essential hypertension
-Hold atenolol for now pending cardiology recommendations and while on diltiazem
# Hyperlipidemia
- Continue simvastatin
# Hypokalemia repleted in the emergency department
-Repeat potassium level in the morning
-Check a magnesium level
PLAN:
- Admit the patient to the IMU with inpatient level of care
Continue the heparin drip and the diltiazem drip with weaning, that was initiated from the emergency department
Cardiology has been consulted and their recommendations are appreciated
Continue the IV meropenem that was initiated in the ED
Urine culture, repeat pending
IV fluids
Serial troponin
DVT prophylaxis is the heparin drip
The patient is a full code
[2024-11-13] MEDS: NEURONTIN 300 MG PO (21:45)
[2024-11-13] MEDS: OCUVITE SOFTGEL 1 CAP PO (21:46)
[2024-11-13] MEDS: TYLENOL 1000 MG PO (21:46)
[2024-11-13] MEDS: NSS 1000 IV (21:46)
--- NOTE | 2024-11-13 22:11 | PTCARENOTE ---
Received pt from ED via stretcher. Pt AAOx3. Cardizem at 5 mg/hr, Heparin 9500 units/hr, and potassium running. Pt HR 90s-130s. Lungs CTA; on RA. Q2T. Remaining assessment as documented. Resting in bed with call lemus in reach.
[2024-11-13 23:58] LABS: Troponin I 0.353 ng/ml
[2024-11-14] VITALS (36 sets, daily range): BP systolic 79–147; BP diastolic 47–102; BMI 25.6
[2024-11-14] MEDS: STERILE WATER FOR INJECTION 10 ML IV ×3 (00:42→15:35)
[2024-11-14] MEDS: MERREM 500 MG IV ×3 (00:42→15:34)
[2024-11-14 01:44] LABS: Urine Albumin 2+ (Neg - Trace); Urine Bilirubin Negative (Negative); Urine Character Clear (Clear); Urine Color Yellow; Urine Glucose Negative (Negative); Urine Ketone Negative (Negative); Urine Leukocyte 1+ (Negative); Urine Nitrite Negative (Negative); Urine Occult Blood 3+ (Negative); Urine Urobilinogen Negative (Neg - 1+)
[2024-11-14 02:06] LABS: Urine Squamous Cell >30 /LPF (Few)
[2024-11-14 02:07] LABS: Urine Amorphous Seen
[2024-11-14 02:08] LABS: Urine Bacteria Moderate (Negative); Urine White Cell 21-25 /HPF (0-5)
[2024-11-14] MEDS: LEVOPHED 250 IV (02:17)
--- NOTE | 2024-11-14 02:25 | PTCARENOTE ---
SBP in the 70s and 80s. MAP 63. Notified PROBATION COUNSELOR. Levo started for MAP to remain >65.
[2024-11-14] MEDS: SYNTHROID 50 MCG PO (05:04)
[2024-11-14 05:27] LABS: % Basophils 0.6 % (0-2); % Immature Granulocytes 1.2 % (0-0.5); % Lymphocytes 15.5 % (20.5-51.1); % Monocytes 13.3 % (1.7-9.3); % Neutrophils 68.4 % (42.2-75.2); Absolute Basophils 0.1 10^3/uL (0-0.2); Absolute Eosinophils 0.1 10^3/uL (0-0.7); Absolute Immature Granulocytes 0.1 10^3/uL (0-0.05); Absolute Lymphocytes 1.8 10^3/uL (1.2-3.4); Absolute Monocytes 1.5 10^3/uL (0.1-0.6); Absolute Neutrophils 7.8 10^3/uL (1.4-6.5); Hematocrit 31.7 % (37.0-47.0); Hemoglobin 11.4 g/dL (12.0-16.0); Mean Corpuscular Hgb 30.1 pg (27.0-31.0); Mean Corpuscular Volume 83.6 fL (81.0-99.0); Mean Platelet Volume 10.8 fL (7.4-10.4); Nucleated Red Blood Cells % 0 %; Platelet Count 187 10^3/uL (130-400); Red Blood Cell Count 3.79 10^6/uL (4.20-5.40); Red Cell Dist. Width 12.4 % (11.5-14.5); White Blood Cell Count 11.5 10^3/uL (4.8-10.8)
[2024-11-14 05:53] LABS: ALT (SGPT) 44 U/L (0-35); AST (SGOT) 43 U/L (14-36); Albumin 2.9 g/dl (3.5-5.0); Alkaline Phosphatase 82 U/L (38-126); Blood Urea Nitrogen 38 mg/dl (7-17); Calcium 8.4 mg/dl (8.4-10.2); Carbon Dioxide 23 mmol/L (22-30); Chloride 102 mmol/L (98-107); Estimated Creatinine Clearance 55 ml/min; Glucose 131 mg/dl (70-99); Magnesium 1.8 mg/dl (1.6-2.3); Potassium 4.3 mmol/L (3.5-5.1); Sodium 132 mmol/L (135-145); Total Bilirubin 0.9 mg/dl (0.2-1.3); Total Protein 5.1 g/dl (6.3-8.2); eGFR > 60.00
[2024-11-14 06:14] LABS: Troponin I 0.295 ng/ml
[2024-11-14 06:18] LABS: APTT 64.9 Sec (23.4-35.0)
--- NOTE | 2024-11-14 07:24 | W.PN.UPDATE ---
Update Note
Progress Note Update
~ midnight 4/5 -�Pt on Cardizem gtt, HR dropping below 80. Cardizem gtt order updated to titrate to 2.5 for HR�80-100.
~ 1 am Cardizem gtt off due to HR < 80. BP 88/51 (Map 63), HR 78.
~�2 am Pt BP 79/52, HR 85. Started Levophed @ 2 mcg/min, ~ 3 am�BP improved 91/66, HR 82.�
~ 6:30, BP 124/67, HR 104, RN to started titrating levophed gtt down, now at 1 mcg/min.
Cardiology consulted.
--- NOTE | 2024-11-14 07:37 | PTCARENOTE ---
Addendum entered by Rome Lima RN 11/14/24 16:38:
All drips now off. VSS, HR 80-90s afib. Continuing to monitor.
Original Note:
Assumed care of patient. HR back to 140s ~0700, cardizem gtt restarted. Heparin and levo gtts infusing per protocol. Patient AAOx3, afib. C/O weakness. Will closely monitor.
[2024-11-14] MEDS: NEURONTIN 300 MG PO ×2 (08:48→19:52)
[2024-11-14] MEDS: OCUVITE SOFTGEL 1 CAP PO ×2 (08:48→19:52)
[2024-11-14] MEDS: VITAMIN C 500 MG PO (08:48)
[2024-11-14] MEDS: ASPIR LOW (ENTERIC COATED) 81 MG PO (08:48)
[2024-11-14] MEDS: TYLENOL 1000 MG PO ×2 (08:53→19:52)
--- NOTE | 2024-11-14 10:15 | CON.CAR ---
Addendum entered and electronically signed by Fabian Toeldo MD 11/14/24 13:23:
Patient was seen and evaluated personally. I agree with the note, plan of care, physical examination and documentation as noted below.
Briefly 89-year-old woman with history of hypertension, diabetes, GERD, hypothyroidism, with polio and bilateral residual lower extremity paresthesia and ambulatory dysfunction was noted to have new onset of atrial fibrillation.
Patient is on diltiazem drip 10 mg/h. Will start patient on metoprolol 25 mg twice a day and diltiazem 120 mg once a day. We will stop heparin drip and start Eliquis 5 mg twice a day. [id number] is 5.
Patient's atrial fibrillation is likely brought forward with her ongoing recurrent UTIs. Patient's troponin leak is likely secondary to tachyarrhythmias. We will continue to follow and will repeat an echo.
Original Note:
Consultation
Consultation Request
Date/Time Consultation Requested: 11/13/2024 21:15
Date/Time Consultation Performed: 11/14/2024 09:15
Requesting Provider: Dr. Lubin
Performing Provider: ARNOLD Lee for Dr. Toledo
Reason for Consultation: Atrial fibrillation with rapid ventricular response
Medical History
-
Chief Complaint: Elevated heart rate
History of Present Illness:
Priya Weems is an 89-year-old female with hypertension, dyslipidemia, NIDDM, GERD, hypothyroidism, and polio with residual bilateral lower extremity paresthesias and ambulatory dysfunction who presented to the emergency department with a chief
complaint of atrial fibrillation with rapid ventricular response. Priya resides at [facility]. She was being reevaluated by her primary care physician there and was found to have an elevated heart rate. Twelve-lead EKG confirmed atrial
fibrillation. This was a new diagnosis for the patient. She had rapid rates and was referred to the emergency department. She arrived via EMS. She endorsed weakness, fatigue, and hypotension. She was found to have a UTI several days ago.
Culture then returned for ESBL and she was transitioned to another antimicrobial agent but had persistent fatigue and hypotension. Cardiology was consulted for atrial fibrillation management. This patient does not have an outpatient retail and restaurant associate.
Past Medical History
Past Medical History: GERD, HTN, Hypercholesterolemia, Hypothyroidism, NIDDM and Other (Polio with residual bilateral lower extremity paresthesias and ambulatory dysfunction)
Past Surgical History: Cholecystectomy, Gynecological and Tonsilectomy
Social History
Tobacco: Non-Smoker
Drug: None
Personal:
Living: Assisted Living ([facility])
Employment: Retired
Allergies / Home Medications
Allergy/AdvReac Type Severity Reaction Status Date / Time
amoxicillin [From Augmentin] Allergy Rash Verified 11/13/24 14:32
clavulanic acid Allergy Rash Verified 11/13/24 14:32
[From Augmentin]
meperidine [From Demerol] Allergy Unknown Verified 11/13/24 14:32
niacin Allergy Unknown Verified 11/13/24 14:32
Penicillins Allergy Unknown Verified 11/13/24 14:32
shellfish derived Allergy Unknown Verified 11/13/24 14:32
�Medication �Instructions �Recorded �Confirmed �Type
acetaminophen 500 mg tablet 1,000 mg PO BID 05/04/23 11/13/24 History
aspirin 81 mg tablet,delayed 81 mg PO DAILY 05/04/23 11/13/24 History
release
atenolol 25 mg tablet 25 mg PO HS 05/04/23 11/13/24 History
gabapentin 300 mg capsule 300 mg PO BID 05/04/23 11/13/24 History
levothyroxine 50 mcg tablet 50 mcg PO DAILY 05/04/23 11/13/24 History
omega 7-eei-vqz-fish oil 1,200 mg 1 cap PO BID 05/04/23 11/13/24 History
(144 mg-216 mg) capsule (Fish Oil)
simvastatin 20 mg tablet 20 mg PO SUMOWEFR 05/04/23 11/13/24 History
vit C 250 mg-vit E 90 mg-zinc 40 1 tab PO BID 05/04/23 11/13/24 History
mg-copper 1 [id number]
capsule (PreserVision AREDS-2)
ascorbic acid (vitamin C) 500 mg 500 mg PO Q48H 11/13/24 11/13/24 History
tablet (Vitamin C)
estradiol 0.01% (0.1 mg/gram) 1 appful vaginal MOWE 11/13/24 11/13/24 History
vaginal cream
sulfamethoxazole 800 1 tab PO BID 11/13/24 11/13/24 History
mg-trimethoprim 160 mg tablet
(Bactrim DS)
Review of Systems
-
History Source: Patient
All other systems: Negative unless noted
Constitutional: Fatigue
EENT: No Symptoms
Respiratory: No Symptoms
Cardiac: No Symptoms
Abdomen/GI: No Symptoms
: No Symptoms
Musculoskeletal: Edema (Chronic lower extremity edema)
Skin: No Symptoms
Neurological: Weakness
Endocrine: No Symptoms
Hematologic/Lymphatic: No Symptoms
Physical Exam
Vital Signs
Temp Pulse Resp BP Pulse Ox
97.4 F 104 20 100/69 99
11/14/24 07:50 11/14/24 10:00 11/14/24 10:00 11/14/24 10:00 11/14/24 10:00
Lab Results
11/14/24 05:13
11/14/24 05:13
Troponin I 0.295 ng/ml H* 11/14/24 05:13
Physical Exam
General: Well Developed, Well Nourished, No Apparent Distress and Comfortable
HEENT: Normocephalic, Anicteric and Moist Mucous Membranes
Respiratory: Clear and Non Labored Respirations
Cardiac: S1/S2, Irregular Rhythm and Peripheral Edema
Breast: Deferred by me
GI: Soft, Non Tender, Non Distended and Normal Bowel Sounds
Rectal: Deferred by Provider
Genito-urinary: No Costovertebral Tender
Musculoskeletal: No Clubbing, No Cyanosis and No Edema
Skin: Warm and Dry
Neuro: AO x 3
Hematologic/Lymphatic: No Lymphadenopathy
Psych: Calm
Impression / Plan
-
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
with rapid ventricular response.
Outpatient retail and restaurant associate: None
Atrial fibrillation with rapid ventricular response
- Fairly rate controlled on diltiazem 10 mg/h, start metoprolol tartrate 25 mg twice daily with holding parameters
- Oral Anticoagulation: Stop heparin drip and start apixaban 5 mg twice daily, we reviewed the risks and benefits of anticoagulation and she is agreeable
- [id number]: Score at least 5 (HTN, age 75 or more, Diabetes Mellitus, female gender)
- TSH in a.m.
UTI, ESBL diagnosed as an outpatient, per primary service
Abnormal troponin, type unknown
- This is likely nonischemic myocardial injury in the setting of tachyarrhythmia
- Stable without chest pain
- Peak troponin on arrival, 0.370
- Echocardiogram on Saturday
Hypertension with hypotension
- Briefly required Levophed overnight, no lactate drawn
- Stop atenolol, start metoprolol tartrate and follow BP
Postpolio syndrome, with residual bilateral lower extremity paresthesias, chronic edema, and ambulatory dysfunction
NIDDM, with hyperglycemia, HgbA1c pending
Hypothyroidism, on levothyroxine, TSH in a.m.
Dyslipidemia, on simvastatin 4 days a week
Data Reviewed
-
EKG: Report Reviewed by me (Atrial fibrillation with ventricular response, left axis, rate 112)
Radiology: Report Reviewed by me (CXR: No acute cardiopulmonary process)
Labs: Labs Reviewed by me
Old Records: Reviewed
[2024-11-14] MEDS: LOPRESSOR 25 MG PO ×2 (10:48→19:54)
[2024-11-14] MEDS: ELIQUIS 5 MG PO ×2 (10:49→19:52)
[2024-11-14 12:29] LABS: Glycohemoglobin (HgbA1c) 6.2 % (4.0-5.6)
[2024-11-14] MEDS: CARDIZEM CD 120 MG PO (14:06)
--- NOTE | 2024-11-14 15:27 | CM ---
CM reviewed chart, consult received for cost of Eliquis 5mg twice a day. CM spoke with patients prescription plan ([facility], spoke with Yesenia), for 30 day supply, $25 co pay, 90 day supply, $60. CM spoke with patients daughter, Rome
[phone], initial assessment completed. Patient [place], electric wheel chair, per daughter has been WC bound last 20 years. Daughter reports patient attends fitness classes three times a week, is able to transfer self.
Daughter concerned regarding patient transferring self and feels she is getting weaker, inquiring if PT/OT able to evaluate patient. Daughter reports patient does her own laundry, cooking, etc. Daughter reports they have looked into Assisted Living
facilities and patient did not like them. Patient PCP Denise Sales, pharmacy [facility]. CM discussed cost of medication with daughter, agreeable to cost. CM will continue to follow for all discharge planning needs.
Plan; return to [place] likely, daughter requesting PT/OT evals
--- NOTE | 2024-11-14 17:02 | W.PN.HOSP.TC ---
Today's Communication/Plan
-
continue Diltiazem and Metoprolol for rate control
recheck labs
Assessment / Plan
Assessment / Plan
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
her ADLs with weekly help, macular degeneration, who presents the emergency department secondary to severe generalized weakness and fatigue. She was being treated outpatient for UTI with Cipro that was changed to Bactrim due to ESBL positive
sensitive to Bactrim. Since then she has been experiencing increased fatigue. She denies chest pain or shortness of breath no palpitations, she denies current urinary symptoms. In the emergency department she is found to be in atrial fibrillation
with RVR and she was started on a heparin drip and a diltiazem drip. Her troponin was also noted to be elevated.
ED treatment IV Merrem, IV diltiazem drip , IV heparin drip, potassium IV and p.o.
Heparin now changed to Eliquis
# ESBL UTI
on Meropenem
# atrial fibrillation with RVR
on Lopressor 25 bid and Cardizem CD 120 mg daily
# Elevated troponin, concern for non-STEMI versus demand ischemia
# Kxs-suneidf-nbjlwqvjc diabetes, diet controlled
# Hypothyroidism
Continue Synthroid
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
# Essential hypertension
-Hold atenolol for now pending cardiology recommendations and while on diltiazem
# Hyperlipidemia
- Continue simvastatin
# Hypokalemia repleted in the emergency department
3.2-->4.3
- magnesium level 1.8
PLAN:
- Admit the patient to the IMU with inpatient level of care
Cardiology has been consulted and their recommendations are appreciated
Continue the IV meropenem that was initiated in the ED
Urine culture, repeat pending
IV fluids
Serial troponin
DVT prophylaxis is the heparin drip
The patient is a full code
Anticipated Discharge: > 48 hours
Subjective/Interval History
-
Date of Service: November 14, 2024
Awake, alert conversant
Objective Data
-
Labs:
Laboratory Results
11/14/24 11/14/24 11/14/24
05:13 12:30 12:30
WBC 11.5 H
Hgb 11.4 L
Hct 31.7 L
Plt Count 187
APTT 64.9 H Cancelled Cancelled
Sodium 132 L
Potassium 4.3 D
Chloride 102
Carbon Dioxide 23
BUN 38 H
Creatinine 0.7
Glucose 131 H
Calcium 8.4
Total Bilirubin 0.9
AST 43 H
ALT 44 H
Alkaline Phosphatase 82
Vital Signs:
Vital Signs
Temp Pulse Resp BP Pulse Ox
97.5 F 81 17 104/74 77
11/14/24 12:17 11/14/24 16:15 11/14/24 16:15 11/14/24 16:00 11/14/24 16:15
I&O
11/13/24 11/14/24 11/15/24
06:59 06:59 06:59
Intake Total 1240 / 1240
Balance 1240 / 1240
Review of Systems
-
History Source: Patient and Family (dgt at bedside)
Constitutional: Denies Fever
Respiratory: Reports No Symptoms
Cardiac: Reports Palpitations; Denies Chest Pain
Abdomen/GI: Reports No Symptoms; Denies Abdominal Pain
Genitourinary: Reports Dysuria, Frequency and Urgency
Physical Exam
-
General: Well Developed, Well Nourished and No Apparent Distress
HEENT: Normocephalic, Atraumatic and Moist Mucous Membranes
Respiratory: Clear to Auscultation; Negative Wheezes, Rales or Rhonchi
Cardiac: S1/S2 and Irregular Rhythm
GI: Nontender and Nondistended
Genito-urinary: No Costovertebral Tender
Musculoskeletal: No Clubbing, No Cyanosis and No Edema
Skin: Warm and Dry
[2024-11-15] VITALS (23 sets, daily range): BP systolic 92–144; BP diastolic 56–105; BMI 25.4
[2024-11-15] MEDS: MERREM 500 MG IV ×5 (01:34→23:05)
[2024-11-15] MEDS: STERILE WATER FOR INJECTION 10 ML IV ×5 (01:34→23:05)
[2024-11-15] MEDS: SYNTHROID 50 MCG PO (05:22)
[2024-11-15 05:46] LABS: Hematocrit 30.8 % (37.0-47.0); Hemoglobin 10.9 g/dL (12.0-16.0); Mean Corp Hgb Conc. 35.4 g/dL (33.0-37.0); Mean Corpuscular Volume 84.8 fL (81.0-99.0); Mean Platelet Volume 10.7 fL (7.4-10.4); Platelet Count 180 10^3/uL (130-400); Red Blood Cell Count 3.63 10^6/uL (4.20-5.40); Red Cell Dist. Width 12.4 % (11.5-14.5); White Blood Cell Count 9.5 10^3/uL (4.8-10.8)
--- NOTE | 2024-11-15 06:02 | PTCARENOTE ---
Received pt at change of shift. no events noted over night. BP remains stable at this time. Resting in bed with call lemus in reach.
[2024-11-15 06:10] LABS: Blood Urea Nitrogen 30 mg/dl (7-17); Carbon Dioxide 25 mmol/L (22-30); Chloride 104 mmol/L (98-107); Estimated Creatinine Clearance 64 ml/min; Glucose 132 mg/dl (70-99); Potassium 4.1 mmol/L (3.5-5.1); Sodium 136 mmol/L (135-145); eGFR > 60.00
[2024-11-15 06:42] LABS: TSH Reflex To Free T4 2.73 uIU/ml (0.47-4.68)
[2024-11-15] MEDS: NEURONTIN 300 MG PO ×2 (07:39→19:09)
[2024-11-15] MEDS: TYLENOL 1000 MG PO ×2 (07:39→19:09)
[2024-11-15] MEDS: ELIQUIS 5 MG PO ×2 (07:40→19:09)
[2024-11-15] MEDS: OCUVITE SOFTGEL 1 CAP PO ×2 (07:40→19:09)
[2024-11-15] MEDS: LOPRESSOR 25 MG PO ×2 (07:40→19:08)
[2024-11-15] MEDS: CARDIZEM CD 120 MG PO (07:42)
--- NOTE | 2024-11-15 12:13 | W.PN.CD ---
Today's Communication / Plan
-
- Continue Eliquis and Metoprolol
- ECHO in AM
Impression / Plan
-
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
with rapid ventricular response.
Outpatient academic affairs specialist: None
Atrial fibrillation with rapid ventricular response
- Switched dilt drip to PO and metoprolol tartrate 25 mg twice daily with holding parameters
- Rates were corina his MA but later during the day, her rates are in 70s.
- Oral Anticoagulation: On apixaban 5 mg twice daily
- [id number]: Score at least 5 (HTN, age 75 or more, Diabetes Mellitus, female gender)
- TSH 2.73
UTI, ESBL diagnosed as an outpatient, per primary service
Abnormal troponin, type unknown
- This is likely nonischemic myocardial injury in the setting of tachyarrhythmia
- Stable without chest pain
- Peak troponin on arrival, 0.370
- Echocardiogram on Saturday
Hypertension with hypotension
- Briefly required Levophed overnight, no lactate drawn
- Stop atenolol, start metoprolol tartrate and follow BP
Postpolio syndrome, with residual bilateral lower extremity paresthesias, chronic edema, and ambulatory dysfunction
NIDDM, with hyperglycemia, HgbA1c pending
Hypothyroidism, on levothyroxine, TSH in a.m.
Dyslipidemia, on simvastatin 4 days a week
Physical Exam
Vital Signs/Labs
Vital Signs
Temp Pulse Resp BP Pulse Ox
97.6 F 121 17 116/91 96
11/15/24 11:05 11/15/24 07:42 11/15/24 02:00 11/15/24 07:42 11/15/24 02:00
11/14/24 11/15/24 11/16/24
06:59 06:59 06:59
Actual Weight 76.3 kg 75.7 kg
11/15/24 05:28
11/15/24 05:28
PT 14.6 Sec (11.4-14.6) 11/13/24 14:38
INR 1.10 11/13/24 14:38
APTT Cancelled 11/14/24 12:30
APTT Cancelled 11/14/24 12:30
Magnesium 1.8 mg/dl (1.6-2.3) 11/14/24 05:13
LAB Results
11/13/24 11/13/24 11/14/24
14:38 23:00 05:13
Troponin I 0.370 H* 0.353 H* 0.295 H*
Physical Exam
Constitutional: No acute distress and Comfortable
EENT: Anicteric and Moist mucous membranes
Cardiovascular: Pedal edema is absent, JVD pressure is normal, Rhythm/rate is irregular and Systolic murmur present
Respiratory: Respiratory effort normal, Wheeze Absent and Crackles Absent
GI: Soft, Normal bowel sounds and Distention present
Neuro/Psych: Alert, Oriented and AO x 3
Data Reviewed
-
Date of Service: November 15, 2024
Medical Decision Making: Reviewed Test Results
EKG: Tracing Personally Visualized and interpreted
X-Ray/CT/US/MRI/NUC/PET: Image Personally Visualized and interpreted
Labs: Labs Reviewed by me
Old Records: Reviewed
--- NOTE | 2024-11-15 14:52 | PTCARENOTE ---
Patients heart rate was uncontrolled afib in the 120s before morning medications. Rate controlled in the 90s after morning medications administered, discussed with hospitalist. Patient educated about afib and Eliquis rational. Patient has a good
appetite, continent of bowel and bladder. In good spirits, compliant with plan of care.
[2024-11-15] MEDS: MIRALAX 17 GRAMS PO (16:21)
[2024-11-15] MEDS: SENOKOT-S 1 TABLET PO (16:21)
[2024-11-15] MEDS: LIPITOR 10 MG PO (17:17)
--- NOTE | 2024-11-15 18:08 | W.PN.HOSP.TC ---
Addendum entered and electronically signed by Marcus Steve MD 11/16/24 11:43:
Pt noted mild Hyponatremia on admission with rapid improvement over the course of the next 48 hrs
Addendum entered and electronically signed by Marcus Steve MD 11/16/24 11:40:
On the nigh of admission patient was noted to be Hypotensive, felt due to a combination of the atrial fibrillation, using Cardizem drip for rate control and possibly acute illness associated with the UTI. Cardizem was stopped and low dose Levophed
was utilized to support BP
Original Note:
Today's Communication/Plan
-
continue Meropenem for UTI
continue Lopressor and Diltiazem for rate control
Pt lives at [facility], will probably benefit from short term SNF post dc
Assessment / Plan
Assessment / Plan
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
her ADLs with weekly help, macular degeneration, who presents the emergency department secondary to severe generalized weakness and fatigue. She was being treated outpatient for UTI with Cipro that was changed to Bactrim due to ESBL positive
sensitive to Bactrim. Since then she has been experiencing increased fatigue. She denies chest pain or shortness of breath no palpitations, she denies current urinary symptoms. In the emergency department she is found to be in atrial fibrillation
with RVR and she was started on a heparin drip and a diltiazem drip. Her troponin was also noted to be elevated.
ED treatment IV Merrem, IV diltiazem drip , IV heparin drip, potassium IV and p.o.
Heparin now changed to Eliquis
# ESBL UTI
on Meropenem
# atrial fibrillation with RVR, rate now slower, in the 80-90 range primarily
on Lopressor 25 bid and Cardizem CD 120 mg daily
# Elevated troponin, concern for non-STEMI versus demand ischemia
# Uji-acqtdvu-cadnikevr diabetes, diet controlled
# Hypothyroidism
Continue Synthroid
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
# Essential hypertension
-Off atenolol and now on Lopressor 25 mg bid
# Hyperlipidemia
- Continue simvastatin
# Hypokalemia repleted in the emergency department
3.2-->4.3-->4.1, resolved
- magnesium level 1.8
PLAN:
- Admit the patient to the IMU with inpatient level of care
Cardiology has been consulted and their recommendations are appreciated
Continue the IV meropenem that was initiated in the ED
Urine culture, E.Coli sens to Meropenem
Serial troponin 0.37-->0.353-->0.295
DVT prophylaxis is the heparin drip
The patient is a full code
Anticipated Discharge: > 48 hours
Subjective/Interval History
-
Date of Service: November 15, 2024
Awake, alert
Objective Data
-
Labs:
Laboratory Results
11/15/24
05:28
Sodium 136
Potassium 4.1
Chloride 104
Carbon Dioxide 25
BUN 30 H
Creatinine 0.6
Glucose 132 H
Calcium 9.0
Vital Signs:
Vital Signs
Temp Pulse Resp BP Pulse Ox
97.6 F 98 21 113/69 98
11/15/24 15:00 11/15/24 16:00 11/15/24 16:00 11/15/24 16:00 11/15/24 17:05
I&O
11/14/24 11/15/24 11/16/24
06:59 06:59 06:59
Intake Total 1240 / 1240 480 / 480 120 / 120
Balance 1240 / 1240 480 / 480 120 / 120
Review of Systems
-
History Source: Patient and Family (dgt at bedside)
Constitutional: Denies Fever
Respiratory: Reports No Symptoms
Cardiac: Reports Palpitations; Denies Chest Pain
Abdomen/GI: Reports No Symptoms; Denies Abdominal Pain
Genitourinary: Reports Dysuria, Frequency and Urgency
Neuro: Reports Other (Bilateral Lower Extremities, flacid paralysis post polio age 14)
Physical Exam
-
General: Well Developed, Well Nourished and No Apparent Distress
HEENT: Normocephalic, Atraumatic and Moist Mucous Membranes
Respiratory: Clear to Auscultation; Negative Wheezes, Rales or Rhonchi
Cardiac: S1/S2 and Irregular Rhythm
GI: Nontender and Nondistended
Genito-urinary: No Costovertebral Tender
Musculoskeletal: No Clubbing, No Cyanosis and No Edema
Skin: Warm and Dry
--- NOTE | 2024-11-15 19:28 | PTCARENOTE ---
At change of shift patients heart rate increased again into the 130s. Lopressor administered. Endorsed to next shift.
[2024-11-16] VITALS (15 sets, daily range): BP systolic 99–179; BP diastolic 58–114; PULSE 116–135; O2SAT 97; BMI 25.4
--- NOTE | 2024-11-16 02:49 | PTCARENOTE ---
Assumed care of pt from lilibeth TEMPLE. Pt aaox3. afib on monitor, hr 85. Hygiene completed. Pt resting in bed with call lemus in reach.
[2024-11-16] MEDS: MERREM 500 MG IV ×4 (05:13→23:04)
[2024-11-16] MEDS: SYNTHROID 50 MCG PO (05:14)
[2024-11-16] MEDS: STERILE WATER FOR INJECTION 10 ML IV ×4 (05:14→23:06)
[2024-11-16 05:54] LABS: % Basophils 0.6 % (0-2); % Eosinophils 2.7 % (0-6); % Immature Granulocytes 3.7 % (0-0.5); % Lymphocytes 23.8 % (20.5-51.1); % Monocytes 9.8 % (1.7-9.3); % Neutrophils 59.4 % (42.2-75.2); Absolute Basophils 0.1 10^3/uL (0-0.2); Absolute Eosinophils 0.3 10^3/uL (0-0.7); Absolute Immature Granulocytes 0.4 10^3/uL (0-0.05); Absolute Lymphocytes 2.5 10^3/uL (1.2-3.4); Absolute Neutrophils 6.2 10^3/uL (1.4-6.5); Hematocrit 34.3 % (37.0-47.0); Mean Corpuscular Hgb 30.2 pg (27.0-31.0); Mean Corpuscular Volume 86.4 fL (81.0-99.0); Mean Platelet Volume 10.5 fL (7.4-10.4); Nucleated Red Blood Cells % 0 %; Platelet Count 215 10^3/uL (130-400); Red Blood Cell Count 3.97 10^6/uL (4.20-5.40); Red Cell Dist. Width 12.8 % (11.5-14.5); White Blood Cell Count 10.5 10^3/uL (4.8-10.8)
[2024-11-16 06:17] LABS: Blood Urea Nitrogen 27 mg/dl (7-17); Calcium 9.5 mg/dl (8.4-10.2); Carbon Dioxide 26 mmol/L (22-30); Chloride 104 mmol/L (98-107); Estimated Creatinine Clearance 64 ml/min; Glucose 131 mg/dl (70-99); Magnesium 1.6 mg/dl (1.6-2.3); Sodium 137 mmol/L (135-145); eGFR > 60.00
[2024-11-16 06:41] LABS: Potassium 4.6 mmol/L (3.5-5.1)
[2024-11-16] MEDS: NEURONTIN 300 MG PO ×2 (08:55→19:41)
[2024-11-16] MEDS: CARDIZEM CD 120 MG PO (08:56)
[2024-11-16] MEDS: LOPRESSOR 25 MG PO (08:56)
[2024-11-16] MEDS: OCUVITE SOFTGEL 1 CAP PO ×2 (08:56→19:41)
[2024-11-16] MEDS: VITAMIN C 500 MG PO (08:56)
[2024-11-16] MEDS: ELIQUIS 5 MG PO ×2 (08:56→19:41)
[2024-11-16] MEDS: TYLENOL 1000 MG PO ×2 (08:56→19:41)
--- NOTE | 2024-11-16 10:01 | PN.CDI ---
CDI
- -
CDI:
Physician Documentation Request
Admit Date: 11/13/24 18:33
Dear Doctor Power,
11/14 Cardiology Consult: 'Atrial fibrillation with rapid ventricular response...Hypertension with hypotension - Briefly required Levophed overnight, no lactate drawn - Stop atenolol, start metoprolol tartrate and follow BP'
Selected Entries
11/14/24
00:34 11/14/24
01:11 11/14/24
02:00
CURRENT dosage in mcg/min
MAP (cuff-Linda Monitor) 59 58 63
11/14/24
02:24 11/14/24
06:30 11/14/24
07:00
CURRENT dosage in mcg/min 2 1 1
MAP (cuff-Linda Monitor)
Please clarify which of the following is the most likely etiology of the above symptoms and treatment rendered:
Cardiogenic shock
Shock, unknown type
Hypotension - indicate type/etiology, such as idiopathic, neurogenic or orthostatic, post-procedural, postoperative, due to hemodialysis, chronic, drug induced (indicate drug), etc.
Hypotension - unknown type/etiology
Other
Use of terms such as suspected, likely, concern for, or probable (associated with a specific diagnosis that is being evaluated, monitored, or treated as if it exists) are acceptable and can be coded in the inpatient setting, when documented at the
time of discharge.
Thank you,
Betty Ewing RN, BSN
CDI Specialist
Available via [place] text
Please use your independent medical judgment in providing your response.
--- NOTE | 2024-11-16 10:10 | PN.CDI ---
CDI
- -
CDI:
Physician Documentation Request
Admit Date: 11/13/24 18:33
Dear Doctor Power,
Patient admitted for UTI.
Laboratory Tests
11/13/24 11/14/24
14:38 05:13
Sodium 128 L 132 L
Based on the above, could you clarify in the progress notes, the appropriate diagnosis, if significant, that supports the above abnormalities and additional evaluation, monitoring and/or treatment rendered:
Hyponatremia
Abnormal lab value insignificant
Other
Use of terms such as suspected, likely, concern for, or probable (associated with a specific diagnosis that is being evaluated, monitored, or treated as if it exists) are acceptable and can be coded in the inpatient setting, when documented at the
time of discharge.
Thank you,
Betty Ewing RN, BSN
CDI Specialist
Available via [place] text
Please use your independent medical judgment in providing your response.
[2024-11-16] MEDS: TOPROL XL 25 MG PO (13:14)
--- NOTE | 2024-11-16 14:23 | W.PN.CD ---
Today's Communication / Plan
-
continue diltiazem 120mg daily, and increase metoprolol to succinate 50mg bid for better rate control
echo
Impression / Plan
-
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
with rapid ventricular response.
Outpatient auto service representative: None
Atrial fibrillation with rapid ventricular response
- Oral Anticoagulation: On apixaban 5 mg twice daily
- [id number]: Score at least 5 (HTN, age 75 or more, Diabetes Mellitus, female gender)
- continue diltiazem 120mg daily, and increase metoprolol to succinate 50mg bid for better rate control
UTI, ESBL diagnosed as an outpatient, Abx per primary service
Abnormal troponin
- This is likely acute nonischemic myocardial injury in the setting of tachyarrhythmia
- Stable without chest pain
- Peak troponin on arrival, 0.370
- Echocardiogram on today
Hypertension, but with hypotension this admission
- Briefly required Levophed early in admission, ? sepsis
- Stopped atenolol, started metoprolol
Postpolio syndrome, with residual bilateral lower extremity paresthesias, chronic edema, and ambulatory dysfunction
NIDDM, with hyperglycemia, HgbA1c pending
Hypothyroidism, on levothyroxine, TSH in a.m.
Dyslipidemia, on simvastatin 4 days a week
Physical Exam
Vital Signs/Labs
Vital Signs
Temp Pulse Resp BP Pulse Ox
98.3 F 93 17 110/79 96
11/16/24 07:18 11/16/24 13:14 11/16/24 10:17 11/16/24 13:14 11/16/24 09:46
11/15/24 11/16/24 11/17/24
06:59 06:59 06:59
Actual Weight 75.7 kg 75.7 kg
11/16/24 05:32
11/16/24 05:32
PT 14.6 Sec (11.4-14.6) 11/13/24 14:38
INR 1.10 11/13/24 14:38
APTT Cancelled 11/14/24 12:30
APTT Cancelled 11/14/24 12:30
Magnesium 1.6 mg/dl (1.6-2.3) 11/16/24 05:32
LAB Results
11/13/24 11/13/24 11/14/24
14:38 23:00 05:13
Troponin I 0.370 H* 0.353 H* 0.295 H*
Physical Exam
Constitutional: No acute distress and Comfortable
EENT: Moist mucous membranes
Cardiovascular: Pedal edema is absent, JVD pressure is normal, Systolic murmur absent and Rhythm/rate is irregular
Respiratory: Respiratory effort normal
Neuro/Psych: AO x 3
Data Reviewed
-
Date of Service: November 16, 2024
EKG: Other (Tele: A fib avg HR 100 bpm)
Labs: Labs Reviewed by me
--- NOTE | 2024-11-16 15:11 | W.PN.HOSP.TC ---
Today's Communication/Plan
-
continue Abx
continue rate control
Await Echo
DC planning to SNF
Assessment / Plan
Assessment / Plan
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
her ADLs with weekly help, macular degeneration, who presents the emergency department secondary to severe generalized weakness and fatigue. She was being treated outpatient for UTI with Cipro that was changed to Bactrim due to ESBL positive
sensitive to Bactrim. Since then she has been experiencing increased fatigue. She denies chest pain or shortness of breath no palpitations, she denies current urinary symptoms. In the emergency department she is found to be in atrial fibrillation
with RVR and she was started on a heparin drip and a diltiazem drip. Her troponin was also noted to be elevated.
ED treatment IV Merrem, IV diltiazem drip , IV heparin drip, potassium IV and p.o.
Heparin now changed to Eliquis
Assessment:
ESBL UTI
- continue meropenem, day 2
- transition to Bactrim at discharge - complete 7 day course
Parox A. Fib with RVR
- continue Toprol XL + Cardizem CD
- continue Eliquis
- Cardiology following
- Echo: pending
acute nonischemic myocardial injury in the setting of tachyarrhythmia
- trop peaked at .370
Xhv-zbyofzl-qpunqqnek diabetes, diet controlled
Hypothyroidism - continue Synthroid
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
- PT/OT - SNF recommended
Essential hypertension
- Off atenolol and now on Lopressor 25 mg bid
Hyperlipidemia
- Continue simvastatin
Hypokalemia repleted in the emergency department
- repleted
DVT ppx: Eliquis
Code: Full
Anticipated Discharge: > 48 hours
Subjective/Interval History
-
Date of Service: November 16, 2024
denies any complaints at present
weakness improving
Objective Data
-
Labs:
Laboratory Results
11/16/24
05:32
WBC 10.5
Hgb 12.0
Hct 34.3 L
Plt Count 215
Sodium 137
Potassium 4.6
Chloride 104
Carbon Dioxide 26
BUN 27 H
Creatinine 0.6
Glucose 131 H
Calcium 9.5
Vital Signs:
Vital Signs
Temp Pulse Resp BP Pulse Ox
98.3 F 93 17 110/79 96
11/16/24 07:18 11/16/24 13:14 11/16/24 10:17 11/16/24 13:14 11/16/24 09:46
I&O
11/15/24 11/16/24 11/17/24
06:59 06:59 06:59
Intake Total 480 / 480 360 / 360
Balance 480 / 480 360 / 360
Physical Exam
-
General: No Apparent Distress
HEENT: Normocephalic and Atraumatic
Respiratory: Negative Wheezes
Cardiac: Irregular Rhythm and Tachycardic
GI: Soft
Genito-urinary: No Costovertebral Tender
Neuro: AO x 3
Psych: Calm
Data Reviewed
-
Total Time Spent with Patient (in minutes): 45
Labs: Labs Reviewed by me
--- NOTE | 2024-11-16 16:04 | CM ---
Patient from [facility] with Hx Polio with Dx ESBL UTI, Parox A. Fib with RVR. Contact Precautions. Echo today. Room air. Receiving IV Abx. PT/OT recommend skilled rehab. Covid test pending.
Message from Dr Jeffries; patient may be ready for d/c tomorrow.
Spoke with patient's daughter Rome; she says her mother has been w/c bound for many years and was able to do her own transfers using her arm strength until recently. Daughter says her mother would like to go to [facility] if possible.
Daughter expressed concerns re; patient returning to Independent Living after SNF if she is not able to do her own w/c transfers. Discussed possibility of adding Personal Care Services.
SNF referral placed.
Spoke with Caroline, [facility]; they are able to accept the patient tomorrow. The for report [phone], fax [phone].
Plan [facility] SNF when medically ready.
--- NOTE | 2024-11-16 17:14 | PTCARENOTE ---
Patient AAOx3. No complaints. VSS. Afib on monitor. Spent few hours in chair today. Will closely monitor.
[2024-11-16] MEDS: LIPITOR 10 MG PO (17:49)
[2024-11-16] MEDS: LOPRESSOR 5 MG IV (19:40)
--- NOTE | 2024-11-16 19:59 | PTCARENOTE ---
Patient arrived on unit from IMU during shift change, pulled over x 3 assist to bed. Patient HR elevated on admission, HR in the 140s, BP 179/110, asymptomatic. MACHINE HOOP MAKER made aware, EKG ordered. EKG showing Afib with RVR, MACHINE HOOP MAKER sent result. 5 mg IV
metoprolol ordered and administered @1940, will continue plan of care.
--- NOTE | 2024-11-16 20:35 | W.PN.UPDATE ---
Update Note
Progress Note Update
RN reported patient HR 150's BP 170's/110, face flushed otherwise asymptomatic. Stated 'face is always flushed'. EKG noted. Will give Metoprolol 5mg IV x 1, hold metoprolol 50mg POx1 now, resume in AM. no new complaints.
[2024-11-17] VITALS (9 sets, daily range): BP systolic 115–178; BP diastolic 66–113; BMI 25.2
[2024-11-17] MEDS: TOPROL XL 50 MG PO ×2 (06:18→20:50)
[2024-11-17] MEDS: SYNTHROID 50 MCG PO (06:22)
[2024-11-17] MEDS: STERILE WATER FOR INJECTION 10 ML IV ×4 (06:22→23:11)
[2024-11-17] MEDS: MERREM 500 MG IV ×4 (06:22→23:09)
--- NOTE | 2024-11-17 08:03 | W.PN.CD ---
Today's Communication / Plan
-
Increase dilt to 60 qid
Cont Metop
Impression / Plan
-
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
with rapid ventricular response.
Outpatient cryptologist: None
Atrial fibrillation with rapid ventricular response
- Oral Anticoagulation: On apixaban 5 mg twice daily
- [id number]: Score at least 5 (HTN, age 75 or more, Diabetes Mellitus, female gender)
- Increase dilt to 60 qid cont metoprolol to succinate 50mg bid for better rate control
UTI, ESBL diagnosed as an outpatient, Abx per primary service
Abnormal troponin
- This is likely acute nonischemic myocardial injury in the setting of tachyarrhythmia
- Stable without chest pain
- Peak troponin on arrival, 0.370
- Echocardiogram below
Hypertension, but with hypotension this admission
- Briefly required Levophed early in admission, ? sepsis
- Stopped atenolol, started metoprolol
Postpolio syndrome, with residual bilateral lower extremity paresthesias, chronic edema, and ambulatory dysfunction
NIDDM, with hyperglycemia, HgbA1c pending
Hypothyroidism, on levothyroxine, TSH in a.m.
Dyslipidemia, on simvastatin 4 days a week
Subjective: HRs were elevated overnight, although she feels fine no new complaints
Echo November 16 2024: CONCLUSIONS
Normal biventricular size and systolic function without regional wall motion
abnormality. Estimated LVEF 60-65%.
Moderate mitral regurgitation.
Mild mitral stenosis.
Moderate low flow, low gradient aortic stenosis. Mean gradient 11 mmHg,
calculated CARMENCITA 1-1.cm2, SVI 25 ml.
No prior study available for comparison.
Physical Exam
Vital Signs/Labs
Vital Signs
Temp Pulse Resp BP Pulse Ox
97.8 F 109 18 125/87 97
11/17/24 07:30 11/17/24 07:30 11/17/24 07:30 11/17/24 07:57 11/17/24 07:30
11/16/24 11/17/24 11/18/24
06:59 06:59 06:59
Actual Weight 166 lb 14.239 oz 165 lb 6.4 oz
11/16/24 05:32
11/16/24 05:32
PT 14.6 Sec (11.4-14.6) 11/13/24 14:38
INR 1.10 11/13/24 14:38
APTT Cancelled 11/14/24 12:30
APTT Cancelled 11/14/24 12:30
Magnesium 1.6 mg/dl (1.6-2.3) 11/16/24 05:32
Physical Exam
Constitutional: No acute distress and Comfortable
EENT: Anicteric
Cardiovascular: Rhythm/rate is irregular
Respiratory: Respiratory effort normal and Lungs clear to auscul.
GI: Soft
Neuro/Psych: AO x 3
Data Reviewed
-
Date of Service: November 17, 2024
EKG: Tracing Personally Visualized and interpreted (af)
Echo: Report Reviewed by me
Labs: Labs Reviewed by me
[2024-11-17] MEDS: CARDIZEM 60 MG PO ×4 (08:14→23:07)
[2024-11-17] MEDS: ELIQUIS 5 MG PO ×2 (08:14→20:51)
[2024-11-17] MEDS: OCUVITE SOFTGEL 1 CAP PO ×2 (08:14→20:51)
[2024-11-17] MEDS: TYLENOL 1000 MG PO ×2 (08:14→20:51)
[2024-11-17] MEDS: NEURONTIN 300 MG PO ×2 (08:14→20:50)
--- NOTE | 2024-11-17 10:43 | CM ---
Addendum entered by Becka Rodarte 11/18/24 08:12:
CORRECTION to below. Patient inpatient
Addendum entered by Becka Rodarte 11/17/24 11:00:
IMM not signed. Patient is OBS
Original Note:
Patient seen at bedside.
IMM explained and signed. In chart
Spoke with Caroline momin and updated possible d/c tomorrow per hospitalist
Notified hospitalist Covid test will need to be ordered prior to [facility]
PLAN: [facility], when medically stable
report [phone], fax [phone]
ambulance transportation forms on chart
--- NOTE | 2024-11-17 12:59 | W.PN.HOSP.TC ---
Today's Communication/Plan
-
follow tele with adjusted Cardizem dosing
Assessment / Plan
Assessment / Plan
Patient is a pleasant 89-year-old woman with past medical history significant for hypertension, hyperlipidemia, nki-tiwtosu-fmmnxaqln diabetes, hypothyroidism, polio paresis of bilateral lower extremities and wheelchair-bound but independent with
her ADLs with weekly help, macular degeneration, who presents the emergency department secondary to severe generalized weakness and fatigue. She was being treated outpatient for UTI with Cipro that was changed to Bactrim due to ESBL positive
sensitive to Bactrim. Since then she has been experiencing increased fatigue. She denies chest pain or shortness of breath no palpitations, she denies current urinary symptoms. In the emergency department she is found to be in atrial fibrillation
with RVR and she was started on a heparin drip and a diltiazem drip. Her troponin was also noted to be elevated.
ED treatment IV Merrem, IV diltiazem drip , IV heparin drip, potassium IV and p.o.
Heparin now changed to Eliquis
Assessment:
ESBL UTI
- continue meropenem, day 3/7
- transition to Bactrim at discharge - complete 7 day course
Parox A. Fib with RVR
- continue Toprol XL + Cardizem
- continue Eliquis
- Cardiology following
- Echo: Normal biventricular size and systolic function without regional wall motion abnormality. Estimated LVEF 60-65%. Moderate mitral regurgitation. Mild mitral stenosis. Moderate low flow, low gradient aortic stenosis. Mean gradient 11 mmHg,
calculated CARMENCITA 1-1.cm2, SVI 25 mL.
acute nonischemic myocardial injury in the setting of tachyarrhythmia
- trop peaked at .370
Zye-xfykkcr-nlcfzihtc diabetes, diet controlled
Hypothyroidism - continue Synthroid
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
- PT/OT - SNF recommended
Essential hypertension
- Off atenolol and now on Toprol XL
Hyperlipidemia
- Continue simvastatin
Hypokalemia repleted in the emergency department
- repleted
DVT ppx: Eliquis
Code: Full
Anticipated Discharge: 24 - 48 hours
Subjective/Interval History
-
Date of Service: November 17, 2024
this AM went into Rapid Afib, but felt fine without complaints
diltiazem titrated by Cardiology
Currently without complaints
Objective Data
-
Vital Signs:
Vital Signs
Temp Pulse Resp BP Pulse Ox
97.6 F 87 18 116/68 96
11/17/24 11:22 11/17/24 11:22 11/17/24 11:22 11/17/24 11:23 11/17/24 11:22
I&O
11/16/24 11/17/24 11/18/24
06:59 06:59 06:59
Intake Total 360 / 360 720 / 720
Balance 360 / 360 720 / 720
Physical Exam
-
General: No Apparent Distress
HEENT: Normocephalic and Atraumatic
Cardiac: Irregular Rhythm
GI: Soft and Nontender
Musculoskeletal: No Edema
Neuro: AO x 3
Psych: Calm
Data Reviewed
-
Total Time Spent with Patient (in minutes): 42
Labs: Labs Reviewed by me
[2024-11-18] VITALS (7 sets, daily range): BP systolic 125–148; BP diastolic 67–92; PULSE 84–90; O2SAT 96; BMI 25.2; BMI 25.3
[2024-11-18] MEDS: STERILE WATER FOR INJECTION 10 ML IV ×3 (05:21→17:33)
[2024-11-18] MEDS: MERREM 500 MG IV ×3 (05:21→17:33)
[2024-11-18] MEDS: SYNTHROID 50 MCG PO (05:22)
[2024-11-18] MEDS: VITAMIN C 500 MG PO (08:03)
[2024-11-18] MEDS: NEURONTIN 300 MG PO ×2 (08:03→22:10)
[2024-11-18] MEDS: OCUVITE SOFTGEL 1 CAP PO ×2 (08:03→22:10)
[2024-11-18] MEDS: CARDIZEM 60 MG PO (08:04)
[2024-11-18] MEDS: TYLENOL 1000 MG PO ×2 (08:04→22:10)
[2024-11-18] MEDS: TOPROL XL 50 MG PO ×2 (08:05→22:10)
[2024-11-18] MEDS: ELIQUIS 5 MG PO ×2 (08:05→22:10)
--- NOTE | 2024-11-18 08:20 | W.PN.CD ---
Addendum entered and electronically signed by Zander Grace MD 11/18/24 08:42:
Dilt to 90mg q6h not 80mg
Original Note:
Today's Communication / Plan
-
Increase dilt to 80 QID
Continue Metop succinate 50mg BID
Check tele this PM and convert dilt to long acting
Dispo likely tomorro
Impression / Plan
-
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
with rapid ventricular response.
Outpatient buttonhole maker hand: None
Atrial fibrillation with rapid ventricular response
- Oral Anticoagulation: On apixaban 5 mg twice daily
- [id number]: Score at least 5 (HTN, age 75 or more, Diabetes Mellitus, female gender)
- Increase dilt to 80 qid; cont metoprolol succinate 50mg bid
- Check tele this PM for further med titration. Home this PM vs tomorrow
UTI, ESBL diagnosed as an outpatient, Abx per primary service
Abnormal troponin
- This is likely acute nonischemic myocardial injury in the setting of tachyarrhythmia
- Stable without chest pain
- Peak troponin on arrival, 0.370
- Echocardiogram below
Hypertension, but with hypotension this admission
- Briefly required Levophed early in admission, ? sepsis
- Stopped atenolol, started metoprolol
Postpolio syndrome, with residual bilateral lower extremity paresthesias, chronic edema, and ambulatory dysfunction
NIDDM, with hyperglycemia, HgbA1c pending
Hypothyroidism, on levothyroxine, TSH in a.m.
Dyslipidemia, on simvastatin 4 days a week
Subjective: She feels fine. No complaints.
Echo November 16 2024: CONCLUSIONS
Normal biventricular size and systolic function without regional wall motion
abnormality. Estimated LVEF 60-65%.
Moderate mitral regurgitation.
Mild mitral stenosis.
Moderate low flow, low gradient aortic stenosis. Mean gradient 11 mmHg,
calculated CARMENCITA 1-1.cm2, SVI 25 ml.
No prior study available for comparison.
Physical Exam
Vital Signs/Labs
Vital Signs
Temp Pulse Resp BP Pulse Ox
97.8 F 96 16 148/92 96
11/18/24 07:25 11/18/24 08:04 11/18/24 07:25 11/18/24 08:04 11/18/24 07:25
11/17/24 11/18/24 11/19/24
06:59 06:59 06:59
Actual Weight 165 lb 6.4 oz 165 lb 14.4 oz
11/16/24 05:32
11/16/24 05:32
PT 14.6 Sec (11.4-14.6) 11/13/24 14:38
INR 1.10 11/13/24 14:38
APTT Cancelled 11/14/24 12:30
APTT Cancelled 11/14/24 12:30
Magnesium 1.6 mg/dl (1.6-2.3) 11/16/24 05:32
Physical Exam
Constitutional: No acute distress and Comfortable
Cardiovascular: Pedal edema is absent, Rhythm/rate is irregular and S1S2 is normal
Respiratory: Respiratory effort normal and Crackles Present
Data Reviewed
-
Date of Service: November 18, 2024
Medical Decision Making: Reviewed Test Results, Independent Historian Assessment, Test Interpretation and Review of Case with other Provider
EKG: Tracing Personally Visualized and interpreted
Echo: Report Reviewed by me
Labs: Labs Reviewed by me
--- NOTE | 2024-11-18 08:37 | CM ---
Chart reviewed.
tentative dc tomorrow
Updated Caroline at [facility]
PLAN: [facility] when medically stable
report [phone], fax [phone]
ambulance transportation forms on chart
--- NOTE | 2024-11-18 11:35 | W.PN.HOSP.TC ---
Today's Communication/Plan
-
Cards increased Cardizem short acting today
Monitor tele
Assessment / Plan
Assessment / Plan
Patient is a pleasant 89-year-old woman with past medical history significant for hypertension, hyperlipidemia, qgk-ahatcrd-mxeeqmdbj diabetes, hypothyroidism, polio paresis of bilateral lower extremities and wheelchair-bound but independent with
her ADLs with weekly help, macular degeneration, who presents the emergency department secondary to severe generalized weakness and fatigue. She was being treated outpatient for UTI with Cipro that was changed to Bactrim due to ESBL positive
sensitive to Bactrim. Since then she has been experiencing increased fatigue. She denies chest pain or shortness of breath no palpitations, she denies current urinary symptoms. In the emergency department she is found to be in atrial fibrillation
with RVR and she was started on a heparin drip and a diltiazem drip. Her troponin was also noted to be elevated.
ED treatment IV Merrem, IV diltiazem drip , IV heparin drip, potassium IV and p.o.
Heparin now changed to Eliquis
Assessment:
ESBL UTI
- continue meropenem, day 4/7
- transition to Bactrim at discharge - complete 7 day course
Parox A. Fib with RVR
- continue Toprol XL + Cardizem (titrating short acting doses per Cardiology)
- continue Eliquis
- Cardiology following
- Echo: Normal biventricular size and systolic function without regional wall motion abnormality. Estimated LVEF 60-65%. Moderate mitral regurgitation. Mild mitral stenosis. Moderate low flow, low gradient aortic stenosis. Mean gradient 11 mmHg,
calculated CARMENCITA 1-1.cm2, SVI 25 mL.
acute nonischemic myocardial injury in the setting of tachyarrhythmia
- trop peaked at .370
Rrp-smcheti-vilbjhwbg diabetes, diet controlled
Hypothyroidism - continue Synthroid
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
- PT/OT - SNF recommended
Essential hypertension
- Off atenolol and now on Toprol XL
Hyperlipidemia
- Continue simvastatin
Hypokalemia repleted in the emergency department
- repleted
DVT ppx: Eliquis
Code: Full
Anticipated Discharge: Within 24 hours
Subjective/Interval History
-
Date of Service: November 18, 2024
no new complaints
remains in periods of rapid Afib
Objective Data
-
Vital Signs:
Vital Signs
Temp Pulse Resp BP Pulse Ox
98.2 F 79 17 127/80 96
11/18/24 11:03 11/18/24 11:03 11/18/24 11:03 11/18/24 11:03 11/18/24 11:03
I&O
11/17/24 11/18/24 11/19/24
06:59 06:59 06:59
Intake Total 720 / 720 1200 / 1200
Balance 720 / 720 1200 / 1200
Physical Exam
-
General: No Apparent Distress
HEENT: Normocephalic and Atraumatic
Cardiac: Irregular Rhythm
GI: Soft and Nontender
Genito-urinary: No Costovertebral Tender
Neuro: AO x 3
Psych: Calm
Data Reviewed
-
Total Time Spent with Patient (in minutes): 41
Labs: Labs Reviewed by me
[2024-11-18] MEDS: CARDIZEM 90 MG PO ×3 (12:51→22:10)
[2024-11-18] MEDS: LIPITOR 10 MG PO (17:35)
[2024-11-19] MEDS: STERILE WATER FOR INJECTION 10 ML IV ×5 (00:18→23:57)
[2024-11-19] MEDS: MERREM 500 MG IV ×5 (00:19→23:57)
[2024-11-19 03:38] VITALS: BP 110/54; BMI 25.3
[2024-11-19] MEDS: SYNTHROID 50 MCG PO (05:40)
[2024-11-19 07:35] VITALS: BP 155/81
--- NOTE | 2024-11-19 08:13 | W.PN.CD ---
Today's Communication / Plan
-
Cont Dilt 360 mg, metop 50 bid and Eliquis
OK to d/c.
We will arrange f/u; please call with questions/concerns.
Impression / Plan
-
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
with rapid ventricular response.
Outpatient track hoe operator: None
Atrial fibrillation with rapid ventricular response: resolved she may be back in SR
- EKG today
- Oral Anticoagulation: On apixaban 5 mg twice daily
- [id number]: Score at least 5 (HTN, age 75 or more, Diabetes Mellitus, female gender)
- Cont dilt 360 mg; cont metoprolol succinate 50mg bid
UTI, ESBL diagnosed as an outpatient, Abx per primary service
Abnormal troponin
- This is likely acute nonischemic myocardial injury in the setting of tachyarrhythmia
- Stable without chest pain
- Peak troponin on arrival, 0.370
- Echocardiogram below
Hypertension, but with hypotension this admission
- Briefly required Levophed early in admission, ? sepsis
- Stopped atenolol, started metoprolol
Postpolio syndrome, with residual bilateral lower extremity paresthesias, chronic edema, and ambulatory dysfunction
NIDDM, with hyperglycemia, HgbA1c pending
Hypothyroidism, on levothyroxine, TSH in a.m.
Dyslipidemia, on simvastatin 4 days a week
Subjective: She feels fine. No complaints.
Echo November 16 2024: CONCLUSIONS
Normal biventricular size and systolic function without regional wall motion
abnormality. Estimated LVEF 60-65%.
Moderate mitral regurgitation.
Mild mitral stenosis.
Moderate low flow, low gradient aortic stenosis. Mean gradient 11 mmHg,
calculated CARMENCITA 1-1.cm2, SVI 25 ml.
No prior study available for comparison.
Physical Exam
Vital Signs/Labs
Vital Signs
Temp Pulse Resp BP Pulse Ox
98.1 F 75 17 155/81 97
11/19/24 07:35 11/19/24 07:35 11/19/24 07:35 11/19/24 07:35 11/19/24 07:35
11/18/24 11/19/24 11/20/24
06:59 06:59 06:59
Actual Weight 165 lb 14.4 oz 166 lb 4 oz
11/16/24 05:32
11/16/24 05:32
PT 14.6 Sec (11.4-14.6) 11/13/24 14:38
INR 1.10 11/13/24 14:38
APTT Cancelled 11/14/24 12:30
APTT Cancelled 11/14/24 12:30
Magnesium 1.6 mg/dl (1.6-2.3) 11/16/24 05:32
Physical Exam
Constitutional: No acute distress and Comfortable
EENT: Anicteric
Cardiovascular: Rhythm & rate is regular
Respiratory: Respiratory effort normal and Lungs clear to auscul.
GI: Soft
Neuro/Psych: AO x 3
Data Reviewed
-
Date of Service: November 19, 2024
EKG: Tracing Personally Visualized and interpreted (sr)
Echo: Report Reviewed by me
Labs: Labs Reviewed by me
--- NOTE | 2024-11-19 09:42 | CM ---
CM reviewed chart, spoke with Caroline liaison at [facility], reports no bed today, will have a bed tomorrow, could accept around 12:30 p.m. (11/20/24). Ambulance forms on chart. Update to Hospitalist. CM will continue to follow for all discharge
planning needs.
PLAN: [facility] SNF tomorrow 11/20
report [phone], fax [phone]
ambulance transportation forms on chart
[2024-11-19 10:19] LABS: COVID-19 Antigen Negative (Negative)
[2024-11-19] MEDS: ELIQUIS 5 MG PO ×2 (10:48→20:46)
[2024-11-19] MEDS: CARDIZEM CD 360 MG PO (10:48)
[2024-11-19] MEDS: OCUVITE SOFTGEL 1 CAP PO ×2 (10:49→20:44)
[2024-11-19] MEDS: TYLENOL 1000 MG PO ×2 (10:49→20:45)
[2024-11-19] MEDS: TOPROL XL 50 MG PO ×2 (10:49→20:44)
[2024-11-19] MEDS: NEURONTIN 300 MG PO ×2 (10:49→20:44)
[2024-11-19 11:04] VITALS: BP 146/74
--- NOTE | 2024-11-19 11:14 | W.PN.HOSP.TC ---
Today's Communication/Plan
-
medically stable pending bed availability at [facility]
Assessment / Plan
Assessment / Plan
Patient is a pleasant 89-year-old woman with past medical history significant for hypertension, hyperlipidemia, gmz-oxwceqv-zpmpevlwe diabetes, hypothyroidism, polio paresis of bilateral lower extremities and wheelchair-bound but independent with
her ADLs with weekly help, macular degeneration, who presents the emergency department secondary to severe generalized weakness and fatigue. She was being treated outpatient for UTI with Cipro that was changed to Bactrim due to ESBL positive
sensitive to Bactrim. Since then she has been experiencing increased fatigue. She denies chest pain or shortness of breath no palpitations, she denies current urinary symptoms. In the emergency department she is found to be in atrial fibrillation
with RVR and she was started on a heparin drip and a diltiazem drip. Her troponin was also noted to be elevated.
ED treatment IV Merrem, IV diltiazem drip , IV heparin drip, potassium IV and p.o.
Heparin now changed to Eliquis
Assessment:
ESBL UTI
- continue meropenem, day 5/7
- transition to Bactrim at discharge - complete 7 day course
Parox A. Fib with RVR
- continue Toprol XL + Cardizem CD
- continue Eliquis
- Cardiology follow up
- Echo: Normal biventricular size and systolic function without regional wall motion abnormality. Estimated LVEF 60-65%. Moderate mitral regurgitation. Mild mitral stenosis. Moderate low flow, low gradient aortic stenosis. Mean gradient 11 mmHg,
calculated CARMENCITA 1-1.cm2, SVI 25 mL.
acute nonischemic myocardial injury in the setting of tachyarrhythmia
- trop peaked at .370
Skt-todzcps-kzeyrjnso diabetes, diet controlled
Hypothyroidism - continue Synthroid
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
- PT/OT - SNF recommended
Essential hypertension
- Off atenolol and now on Toprol XL
Hyperlipidemia
- Continue simvastatin
Hypokalemia repleted in the emergency department
- repleted
DVT ppx: Eliquis
Code: Full
Anticipated Discharge: Within 24 hours
Subjective/Interval History
-
Date of Service: November 19, 2024
resting comfortably
back in sinus rhythm, rate controlled
Objective Data
-
Vital Signs:
Vital Signs
Temp Pulse Resp BP Pulse Ox
97.4 F 77 18 146/74 97
11/19/24 11:04 11/19/24 11:04 11/19/24 11:04 11/19/24 11:04 11/19/24 07:35
I&O
11/18/24 11/19/24 11/20/24
06:59 06:59 06:59
Intake Total 1200 / 1200 1080 / 1080
Balance 1200 / 1200 1080 / 1080
Physical Exam
-
General: No Apparent Distress
HEENT: Normocephalic and Atraumatic
Respiratory: Negative Wheezes
Cardiac: Regular Rhythm and S1/S2
GI: Soft
Neuro: AO x 3
Hematologic / Lymphatic: No Lymphadenopathy
Psych: Calm
Data Reviewed
-
Total Time Spent with Patient (in minutes): 42
Labs: Labs Reviewed by me
[2024-11-19 15:11] VITALS: BP 132/69
[2024-11-19 19:20] VITALS: BP 145/69
[2024-11-19 23:14] VITALS: BP 132/72
[2024-11-20 03:49] VITALS: BP 112/60
[2024-11-20] MEDS: STERILE WATER FOR INJECTION 10 ML IV ×2 (05:49→11:44)
[2024-11-20] MEDS: MERREM 500 MG IV ×2 (05:49→11:44)
[2024-11-20] MEDS: SYNTHROID 50 MCG PO (05:49)
[2024-11-20 06:00] VITALS: BMI 25.0
[2024-11-20 07:00] VITALS: BP 147/78
[2024-11-20] MEDS: VITAMIN C 500 MG PO (07:37)
[2024-11-20] MEDS: CARDIZEM CD 360 MG PO (07:38)
[2024-11-20] MEDS: OCUVITE SOFTGEL 1 CAP PO (07:38)
[2024-11-20] MEDS: NEURONTIN 300 MG PO (07:38)
[2024-11-20] MEDS: ELIQUIS 5 MG PO (07:38)
[2024-11-20] MEDS: TOPROL XL 50 MG PO (07:38)
[2024-11-20] MEDS: TYLENOL 1000 MG PO (07:38)
--- NOTE | 2024-11-20 08:45 | CM ---
Chart reviewed
Covid neg
Updated Caroline at [facility]
IMM explained Kia & verbalizes understanding
PLAN: [facility]
report [phone], fax [phone]
ambulance transportation forms on chart-2PM Transport
[2024-11-20 11:00] VITALS: BP 115/55
--- NOTE | 2024-11-20 12:39 | W.PN.HOSP.TC ---
Today's Communication/Plan
-
dc to SNF today
Assessment / Plan
Assessment / Plan
Patient is a pleasant 89-year-old woman with past medical history significant for hypertension, hyperlipidemia, kxh-epjmxls-htexqadtd diabetes, hypothyroidism, polio paresis of bilateral lower extremities and wheelchair-bound but independent with
her ADLs with weekly help, macular degeneration, who presents the emergency department secondary to severe generalized weakness and fatigue. She was being treated outpatient for UTI with Cipro that was changed to Bactrim due to ESBL positive
sensitive to Bactrim. Since then she has been experiencing increased fatigue. She denies chest pain or shortness of breath no palpitations, she denies current urinary symptoms. In the emergency department she is found to be in atrial fibrillation
with RVR and she was started on a heparin drip and a diltiazem drip. Her troponin was also noted to be elevated.
ED treatment IV Merrem, IV diltiazem drip , IV heparin drip, potassium IV and p.o.
Heparin now changed to Eliquis
Assessment:
ESBL UTI
- continue meropenem, day 6/7
- transition to Bactrim at discharge - complete 7 day course
Parox A. Fib with RVR
- continue Toprol XL + Cardizem CD
- continue Eliquis
- Cardiology follow up
- Echo: Normal biventricular size and systolic function without regional wall motion abnormality. Estimated LVEF 60-65%. Moderate mitral regurgitation. Mild mitral stenosis. Moderate low flow, low gradient aortic stenosis. Mean gradient 11 mmHg,
calculated CARMENCITA 1-1.cm2, SVI 25 mL.
acute nonischemic myocardial injury in the setting of tachyarrhythmia
- trop peaked at .370
Xyr-kjkmqot-dluavnkie diabetes, diet controlled
Hypothyroidism - continue Synthroid
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
- PT/OT - SNF recommended
Essential hypertension
- Off atenolol and now on Toprol XL
Hyperlipidemia
- Continue simvastatin
Hypokalemia repleted in the emergency department
- repleted
DVT ppx: Eliquis
Code: Full
More than 30 minutes spent in discharge including
Final examination of the patient
Summarizing hospital stay
Instructions for continuing care to all relevant caregivers
Preparation of discharge records, prescriptions, and referral forms
Total time spent (in minutes): 41
Anticipated Discharge: Today
Subjective/Interval History
-
Date of Service: November 20, 2024
no complaints
for DC to SNF today
Objective Data
-
Vital Signs:
Vital Signs
Temp Pulse Resp BP Pulse Ox
97.7 F 66 14 115/55 98
11/20/24 11:00 11/20/24 11:00 11/20/24 11:00 11/20/24 11:00 11/20/24 11:00
I&O
11/19/24 11/20/24 11/21/24
06:59 06:59 06:59
Intake Total 1080 / 1080 780 / 780
Balance 1080 / 1080 780 / 780
Physical Exam
-
General: No Apparent Distress
Respiratory: Negative Wheezes
Cardiac: Regular Rhythm and S1/S2
GI: Soft and Nontender
Genito-urinary: No Costovertebral Tender
Neuro: AO x 3
Psych: Calm
Data Reviewed
-
Total Time Spent with Patient (in minutes): 41
Labs: Labs Reviewed by me
--- NOTE | 2024-11-20 12:45 | W.DS.TRANS ---
DC Summary - Private Investigator Surveillance
-
Discharge Instructions:
Discharge Diagnosis/Procedures ESBL UTI and New A. Fib
Diet Diabetic, Carb Controlled,Low Cholesterol
Activity As tolerated
Bathing Restrictions None
Other Services PT,OT
Instructions:
Stand-Alone Forms:
Changes to Home Medications: No
Discharge Medications:
DC Medications w/original date entered in [employer]
acetaminophen 500 mg tablet 1,000 mg PO BID Pain 05/04/23
aspirin 81 mg tablet,delayed release 81 mg PO DAILY Blood Clot Prevention/Tx 05/04/23
gabapentin 300 mg capsule 300 mg PO BID Pain 05/04/23
levothyroxine 50 mcg tablet 50 mcg PO DAILY Thyroid 05/04/23
omega 9-nir-bfy-fish oil 1,200 mg (144 mg-216 mg) capsule (Fish Oil) 1 cap PO BID Supplement 05/04/23
simvastatin 20 mg tablet 20 mg PO SUMOWEFR cholesterol 05/04/23
vit C 250 mg-vit E 90 mg-zinc 40 mg-copper 1 la-hddoiq-qznsox capsule (PreserVision AREDS-2) 1 tab PO BID Supplement 05/04/23
ascorbic acid (vitamin C) 500 mg tablet (Vitamin C) 500 mg PO Q48H Supplement 11/13/24
estradiol 0.01% (0.1 mg/gram) vaginal cream 1 appful vaginal MOWE Hormonal Agent 11/13/24
apixaban 5 mg tablet (Eliquis) 5 mg PO BID #60 tabs 11/20/24
diltiazem HCl 180 mg capsule,extended release 24 hr 360 mg (2 x 180 mg) PO DAILY #60 caps 11/20/24
metoprolol succinate 50 mg tablet,extended release 24 hr 50 mg PO BID #60 tabs 11/20/24
sulfamethoxazole 800 mg-trimethoprim 160 mg tablet (Bactrim DS) 1 tab PO BID Infection #2 tabs 11/20/24
Home Medication Changes
Pending Results: No
Total time spent discharging patient (in min): 42
== END 2024-11-20 14:50 | DRG 690 ==
LOC: 3 WEST ACU 18:33
PROVIDERS: Emergency Medicine; Internal Medicine; Nurse Practitioner Gerontology; ADMITTING PHYSICIAN Internal Medicine; ATTENDING PHYSICIAN Internal Medicine; CONSULT PHYSICIAN Internal Medicine Cardiovascular Disease; EMERGENCY PHYSICIAN Emergency Medicine; FAMILY PHYSICIAN Internal Medicine
DX: N39.0 Urinary tract infection, site not specified (principal); E87.1 Hypo-osmolality and hyponatremia; G82.20 Paraplegia, unspecified; I5A Non-ischemic myocardial injury (non-traumatic); Z16.12 Extended spectrum beta lactamase (ESBL) resistance; I48.0 Paroxysmal atrial fibrillation; B96.20 Unspecified Escherichia coli [E. coli] as the cause of diseases classified elsewhere; E11.9 Type 2 diabetes mellitus without complications; E03.9 Hypothyroidism, unspecified; Z79.890 Hormone replacement therapy; Z86.12 Personal history of poliomyelitis; Z99.3 Dependence on wheelchair; I10 Essential (primary) hypertension; E78.00 Pure hypercholesterolemia, unspecified; E87.6 Hypokalemia; Z88.0 Allergy status to penicillin; Z79.82 Long term (current) use of aspirin; H35.30 Unspecified macular degeneration; I08.0 Rheumatic disorders of both mitral and aortic valves; Z90.49 Acquired absence of other specified parts of digestive tract; K21.9 Gastro-esophageal reflux disease without esophagitis; Z79.899 Other long term (current) drug therapy; Z88.1 Allergy status to other antibiotic agents; Z88.5 Allergy status to narcotic agent; Z11.52 Encounter for screening for COVID-19; I95.9 Hypotension, unspecified
CPT/HCPCS: 71045; 80048; 80053; 81003; 81015; 83036; 83735; 84443; 84484; 85025; 85027; 85610; 85730; 87086; 87811; 93005; 93306; 96365; 96366; 96375; 97163; 97167; 97530; 97535; 99291; J2185

== ENCOUNTER 2025-02-20 14:41 | Emergency (ER) | payer MEDICARE, OTHER, SELFPAY ==
[2025-02-20 14:46] VITALS: BP 132/76
--- NOTE | 2025-02-20 15:35 | ED.SKININJ ---
HPI-Injury
General
Chief Complaint: Skin Surface Trauma
Source: patient
Exam Limitations: none
Time Seen by Provider: 02/20/25 15:14
Nursing documentation reviewed up to this point in time: agreed with
History of Present Illness-Injury
Is this injury a work related problem?: No
Is pt an associate of [facility]?: No
Initial Injury comments:
Pt states she caught thumb on wheel of wheel chair. Sustaine lac to left distal thumb. Incident occurred just [employer]. Unable to stop bleeding, on eliquis for afib
Past History
Past History
ED Past Medical History: HTN, Hypercholesterolemia, NIDDM (Diet controlled), Hypothyroidism and Other (polio, paresis bilateral lower extremity/wheelchair-bound, macular degeneration)
ED Past Surgical History: Cholecystectomy, Gynecological (Hysterectommy), Orthopedic (3 carpal tunnels, ) and Tonsilectomy
Social History
Tobacco: Non-smoker
Alcohol: Occasional
Personal:
Living: assisted living (Cassie's choice)
Employment: Retired
Family History
Family History: Other (Noncontributory)
Review of Systems
Review of Systems
Allergies reviewed?: Yes
All Other Systems: ROS reviewed and negative except as documented in HPI and ROS
Constitutional: Reports no symptoms
Musculoskeletal: Reports no symptoms
Skin: Reports other (laceration to left distal thumb)
Neurological: Reports no symptoms
Psychiatric: Reports no symptoms
Skin Exam
Laceration
Left Distal Thumb:
Length in cm: 2.5
Orientation: diagonal
Type of Laceration: simple
Any active bleeding?: low grade venous oozing
Distal skin color and temperature: normal-warm & good color
Normal distal neurovascular exam: Yes
Range of motion: full
Phy Exam
General Physical Exam
General Presentation: well appearing and no apparent distress
General Skin: warm and dry
General Habitus: normal
General Mental: alert
General Hydration: appears well hydrated
Musculoskeletal Exam
Musculoskeletal Exam: full ROM and neuro vasc intact
Skin Exam
Skin Exam: normal color, warm/dry and no rash
Psychiatric Exam
Psychiatric Exam: normal mood/affect
Course
Orders/Labs/Results
Orders:
Orders
02/20/25 15:35
Tetanus/Diphth/Acelpertussis [Adacel] 0.5 ml IM .ONCE ONE
Vital Signs
Initial and Last Documented VS:
Initial Vital Signs
Temp Pulse Resp BP Pulse Ox
97.6 F 80 18 132/76 97
02/20/25 14:46 02/20/25 14:46 02/20/25 14:46 02/20/25 14:46 02/20/25 14:46
Last Documented Vital Signs
Temp Pulse Resp BP Pulse Ox
97.6 F 80 18 132/76 97
02/20/25 14:46 02/20/25 14:46 02/20/25 14:46 02/20/25 14:46 02/20/25 14:46
Procedures
Laceration Closure
Left Distal Thumb:
Status of Wound: clean
Description of Wound Edges: sharp
Preparation: cleaned with saline
Revision/Debridement: routine- no revision
Wound exploration: explored to base- no FB and no tendon involvement
Type of Closure: Dermabond-skin glue
*Pulse Oximetry
SaO2: 97
Oxygen Mode of Delivery: Room air
Patient hypoxic: no
*Critical Care Note
Total Time (30-74mins, 75-104mins- exclusive of procedures): Not Applicable
ED Attending Note
-
Portions of this chart may have been created with voice recognition software.� Occasional wrong word or��sound alike� substitutions may have occurred due to the inherent limitations of voice recognition software.
Discharge Plan
Departure
Patient Disposition: Home (Routine Discharge)
Date of Disposition: 02/20/25
Time of Disposition: 15:39
Patient with high blood pressure during this ER visit?: No
Condition: Good
Covid-19: Not Applicable
Discharge Problem:
Laceration of thumb
Instructions: Laceration Repair With Glue (DC)
Prescriptions:
No Action
simvastatin 20 mg Tablet
20 mg PO SUMOWEFR
aspirin 81 mg Tablet,Delayed Release (Dr/Ec)
81 mg PO DAILY
acetaminophen 500 mg Tablet
1,000 mg PO BID
levothyroxine 50 mcg Tablet
50 mcg PO DAILY
gabapentin 300 mg Capsule
300 mg PO BID
omega 7-gqa-ral-fish oil [Fish Oil] 1,200 (144-216) mg Capsule
1 cap PO BID
PreserVision AREDS-2 250-90-40-1 mg Capsule
1 tab PO BID
ascorbic acid (vitamin C) [Vitamin C] 500 mg Tablet
500 mg PO Q48H
estradiol 0.01 % (0.1 mg/gram) Cream
1 appful VAGINAL MOWE
diltiazem HCl 180 mg Capsule,Extended Release 24hr
360 mg PO DAILY Qty: 60 0RF
metoprolol succinate 50 mg Tablet Extended Release 24 Hr
50 mg PO BID Qty: 60 0RF
Eliquis 5 mg Tablet
5 mg PO BID Qty: 60 0RF
sulfamethoxazole-trimethoprim [Bactrim DS] 800-160 mg Tablet
1 tab PO BID Qty: 2 0RF
Rx Instructions:
finishing UTI course - start 11/21
Activity Restrictions/Additional Instructions:
Keep wound dry for 3-5 days. Do not remove tape strips.
Interventions
Interventions:
*Risk Screen - Suicide Last Done: 02/20/25 14:46
*General Assessment Last Done: 02/20/25 14:45
*Neglect/Abuse Screening Last Done: 02/20/25 14:45
*ED- Fall Risk Assessment Last Done: 02/20/25 15:15
*ED COVID-19 Vaccine History Last Done: 02/20/25 15:15
ED-Skin Assessment Last Done: 02/20/25 15:15
Discharge Date and Time
Print Language: HUNGARIAN
[2025-02-20] MEDS: ADACEL 0.5 ML IM (15:47)
== END 2025-02-20 19:32 | disposition home or self-care (01) ==
LOC: EMR 14:41
PROVIDERS: EMERGENCY PHYSICIAN Student in an Organized Health Care Education/Training Program; FAMILY PHYSICIAN Internal Medicine
DX: S61.012A Laceration without foreign body of left thumb without damage to nail, initial encounter (principal); W23.0XXA Caught, crushed, jammed, or pinched between moving objects, initial encounter; Z23 Encounter for immunization; E11.9 Type 2 diabetes mellitus without complications; I10 Essential (primary) hypertension; E78.00 Pure hypercholesterolemia, unspecified; E03.9 Hypothyroidism, unspecified; I34.0 Nonrheumatic mitral (valve) insufficiency; H35.30 Unspecified macular degeneration; G83.9 Paralytic syndrome, unspecified; B91 Sequelae of poliomyelitis; M81.0 Age-related osteoporosis without current pathological fracture; Z90.49 Acquired absence of other specified parts of digestive tract; Z99.3 Dependence on wheelchair; Z88.8 Allergy status to other drugs, medicaments and biological substances; Z88.1 Allergy status to other antibiotic agents; Z88.5 Allergy status to narcotic agent; Z88.0 Allergy status to penicillin; Z91.013 Allergy to seafood; Z79.01 Long term (current) use of anticoagulants
CPT/HCPCS: 99283; 12001; 90471; 90715